=== PATIENT | female | born 1970 | race Caucasian/White ===

== ENCOUNTER 2020-04-14 13:16 | Outpatient (REF) | payer OTHER, SELFPAY | END 2020-04-14 13:17 | disposition home or self-care (01) | LOC: HO.LAB 13:16 | PROVIDERS: Visit Provider Internal Medicine | DX: Z20.828 Contact with and (suspected) exposure to other viral communicable diseases (principal) | CPT/HCPCS: C9803; U0003 ==

== ENCOUNTER 2020-05-11 17:17 | Emergency (ER) | payer OTHER, SELFPAY ==
[2020-05-11 18:49] VITALS: BP 125/80; PULSE 92; RESP 18; TEMP 36.9; O2SAT 97; BMI 37.5
--- NOTE | 2020-05-11 18:52 | XR_ITS ---
EXAMINATION: XR CHEST CLINICAL INFORMATION: Shortness of breath. COMPARISON: Chest radiograph dated 08/17/2015. TECHNIQUE: Frontal view of the chest was obtained. FINDINGS: The lungs are clear. The cardiomediastinal silhouette is normal in size. There is no pleural effusion or pneumothorax. No acute osseous abnormality. XR/XR chest 1V IMPRESSION: No acute cardiopulmonary findings.
--- NOTE | 2020-05-11 18:52 | ED_ITS ---
HPI - URI/Sore Throat General Chief Complaint: General Medical Stated Complaint: SOB Time Seen by Provider: 05/11/20 17:20 Source: patient Mode of arrival: ambulatory History of Present Illness HPI Narrative: 50-year-old female with a past medical history of anemia, asthma, COVID-19 positive on 04/14, presenting to the ED complaining of chest pressure/burning, intermittent SOB, mild dry cough, and bilateral back pain x2 days. Reports initially when diagnosed w/COVID-19 only had rhinorrhea. Also reports dysuria x today. Denies fever, chills, abd pain, N/V/D/C, hematuria, recent travel, LE edema, OCP use Related Data Previous Rx's Medication Instructions Recorded nitrofurantoin macrocrystal 100 mg PO Q12H 5 Days #10 cap 05/11/20 Allergies Allergy/AdvReac Type Severity Reaction Status Date / Time No Known Allergies Allergy Verified 05/11/20 18:48 [No Known Allergies*] Review of Systems Review of Systems: Constitutional: No Weight loss, No Fever, No Chills, No Night Sweats ENT/Mouth: No Nasal Congestion, No Sinus Pain, No Hoarseness, No sore throat, No Rhinorrhea Eyes: No Eye Pain, No Swelling, No Redness, No Foreign Body, No Discharge, No Vision Changes Cardiovascular: + Chest Pain, + SOB, No Dyspnea on Exertion, No Orthopnea, No Edema, No Palpitations Respiratory: + Cough, No Sputum, No Wheezing, No Smoke Exposure, No Dyspnea Gastrointestinal: No Nausea, No Vomiting, No Diarrhea, No Constipation, No Abdominal pain Genitourinary: No irregular bleeding, + Dysuria, No Urinary Frequency, No Hematuria Musculoskeletal: +back pain, No Myalgias, No Joint Swelling Skin: No Skin Lesions, No rash Yes all other systems are reviewed and are negative PMFSH Past Medical History Attestation statement: The following information was validated with the patient. Medical History (Updated 05/11/20 @ 23:08 by MARISSA Carranza) Anemia Asthma COVID-19 Encounter for general health examination Surgical History (Updated 03/26/20 @ 06:32 by JOSE Marquez) H/O bilateral breast reduction surgery History of section History of lumbar surgery Family History Family History (Updated 03/26/20 @ 06:33 by Josiane Hartley Bright) Father Diabetes High cholesterol Mother Chronic mental illness Maternal Grandmother Cancer Maternal Grandfather Heart disease Paternal Grandmother No problems noted. Paternal Grandfather No problems noted. Social History Social History Alcohol intake: never Smoking Status: Never smoker Use of substances other than those prescribed or required for medical reasons: No Advance Directives: No Advance Directives Information Provided: No Physical Exam Vital Signs: Vital Signs: Last Vital Signs Temp 98.0 F 05/11/20 22:00 Pulse 79 05/11/20 22:00 Resp 18 05/11/20 22:00 BP 143/81 H 05/11/20 22:00 Pulse Ox 97 05/11/20 22:00 Body Mass Index 37.5 Const: General: cooperative and healthy appearing Orientation/consciousness: patient oriented x3 Limitations: no limitations HENMT: Head: Yes normal to inspection Ears: hearing grossly normal bilate rally General nose exam: Normal external nose present Face and sinus: Yes normal facial exam Eyes: General: appearance normal, both eyes and all related structures EOM: EOMs intact bilaterally Neck: Neck: Yes normal visual inspection Resp: Effort & Inspection: normal respiratory effort Auscultation: clear to auscultation bilaterally, no crackles, no rales, no rhonchi and no wheezes Cardio: Rate: regular rate Heart sounds: S1 normal heart sound present and S2 normal heart sound present GI: Inspection: Yes normal to inspection Palpation (GI): Soft to palpation, nontender, no guarding and not rigid Back/Spine/Pelvis: Other: +mild MSK lower thoracic ttp. No midline spinous ttp Skin: Rashes: no rashes Wounds: no wounds Neuro: General: patient oriented x3 Gait exam (Neuro): Normal gait present Extrem: Other: no LE edema or calf ttp General: Yes normal to inspection Course Course Course Narrative: * 194--chest x-ray unremarkable * CRP mildly elevated, troponin 7.4 > will obtain 3hr repeat * UA infected > 1st dose Macrobid given in the ED * 2304-repeat troponin without 50% increase in [place], [place] unlikely Results discussed with patient including worrisome signs and symptoms and strict return precautions. She verbalized understanding feel safe for discharge home MDM - URI/Sore Throat MDM Narrative Medical decision making narrative: 50-year-old female with a past medical history of anemia, asthma, COVID-19 positive on 04/14, presenting to the ED complaining of chest pressure/burning, intermittent SOB, mild dry cough, and bilateral back pain x2 days On exam VSS, NAD, well appearing, no LE edema, lungs CTA. Likely post covid lung syndrome vs viral infection vs ?pna. Low concern for PE w/o tachycardia or hypoxia. Low concern for ACS Plan: EKG, labs, CXR, reassess Lab Data Result diagrams: 05/11/20 19:35 05/11/20 19:35 Labs: Lab Results 05/11/20 05/11/20 05/11/20 Range/Units 19:35 19:35 19:35 WBC 9.0 (4.8-10.8) X10*3/uL RBC 5.15 (4.20-5.50) X10*6/uL Hgb 11.5 L (12.0-16.0) g/dl Hct 37.5 (37-47) % MCV 72.8 L (80-98) fL MCH 22.3 L (27.0-33.0) pg MCHC 30.7 L (31.0-35.0) g/dl RDW 15.1 (11.0-16.0) % Plt Count 244 (160-400) X10*3/uL MPV 10.8 (9.4-12.3) fL Immature Gran % (Auto) 0.3 (0.0-0.4) % Neut % (Auto) 60.0 (45-73) % Lymph % (Auto) 27.9 (20-40) % [place] % (Auto) 6.8 (2-11) % Eos % (Auto) 4.8 H (0-4) % Baso % (Auto) 0.2 (0-2) % Lymph # (Auto) 2.5 (1.2-4.9) X10*3/uL [place] # (Auto) 0.6 (0.1-1.2) X10*3/uL Eos # (Auto) 0.4 (0.0-0.4) X10*3/uL Baso # (Auto) 0.0 (0.0-0.2) X10*3/uL Abs Immat Gran (auto) 0.03 (0.00-0.03) X10*3/uL Absolute Neuts (auto) 5.4 (2.0-8.3) X10*3/uL Absolute Nucleated RBC 0.000 (0.0-0.012) X10*3/uL Nucleated RBC % (auto) 0.0 (0.0-0.2) /100WBC Hold Blue Top SEE NOTE Sodium 143 (135-145) mmol/L Potassium 4.1 (3.3-5.1) mmol/l Chloride 106 (96-108) mmol/L Carbon Dioxide 27 (22-29) mmol/L Anion Gap 14 (12-20) BUN 11 (9-16) mg/dL Creatinine 1.18 (0.5-1.4) mg/dL Estim Creat Clear Calc 59.2 Estimated GFR 48 Random Glucose 117 H (60-115) mg/dL Calcium 9.3 (8.4-10.2) mg/dL Magnesium (1.6-2.6) mg/dL Ferritin (10-250) ng/mL Total Bilirubin (0.0-1.0) mg/dL Direct Bilirubin (0.0-0.5) mg/dL AST (5-31) U/L ALT (0-31) U/L Alkaline Phosphatase (39-117) U/L Lactate Dehydrogenase (122-220) U/L Troponin I High Sens (<3.5-17.0) ng/L C-Reactive Protein (< or = 0.50) mg/dL B-Natriuretic Peptide (<100) pg/mL Total Protein (6.5-8.0) g/dL Albumin (3.5-5.0) g/dL Lipase (8-78) U/L Procalcitonin ng/mL Urine Color Urine Appearance Urine pH (5.0-8.0) Ur Specific [place] (1.005-1.025) Urine Protein (NEG-TRACE) MG/DL Urine Glucose (UA) (NEG) MG/DL Urine Ketones (NEG) MG/DL Urine Blood (NEG) Urine Nitrite (NEG) Ur Leukocyte Esterase (NEG) Urine RBC (0) /HPF Urine WBC (0-4) /HPF Ur Squamous Epith Cells /LPF Urine Bacteria /LPF 01/03/21 01/03/21 01/03/21 Range/Units 19:35 19:35 19:35 WBC (4.8-10.8) X10*3/uL RBC (4.20-5.50) X10*6/uL Hgb (12.0-16.0) g/dl Hct (37-47) % MCV (80-98) fL MCH (27.0-33.0) pg MCHC (31.0-35.0) g/dl RDW (11.0-16.0) % Plt Count (160-400) X10*3/uL MPV (9.4-12.3) fL Immature Gran % (Auto) (0.0-0.4) % Neut % (Auto) (45-73) % Lymph % (Auto) (20-40) % [place] % (Auto) (2-11) % Eos % (Auto) (0-4) % Baso % (Auto) (0-2) % Lymph # (Auto) (1.2-4.9) X10*3/uL [place] # (Auto) (0.1-1.2) X10*3/uL Eos # (Auto) (0.0-0.4) X10*3/uL Baso # (Auto) (0.0-0.2) X10*3/uL Abs Immat Gran (auto) (0.00-0.03) X10*3/uL Absolute Neuts (auto) (2.0-8.3) X10*3/uL Absolute Nucleated RBC (0.0-0.012) X10*3/uL Nucleated RBC % (auto) (0.0-0.2) /100WBC Hold Blue Top Sodium (135-145) mmol/L Potassium (3.3-5.1) mmol/l Chloride (96-108) mmol/L Carbon Dioxide (22-29) mmol/L Anion Gap (12-20) BUN (9-16) mg/dL Creatinine (0.5-1.4) mg/dL Estim Creat Clear Calc Estimated GFR Random Glucose (60-115) mg/dL Calcium (8.4-10.2) mg/dL Magnesium 2.1 (1.6-2.6) mg/dL Ferritin 45 (10-250) ng/mL Total Bilirubin 0.4 (0.0-1.0) mg/dL Direct Bilirubin 0.2 (0.0-0.5) mg/dL AST 15 (5-31) U/L ALT 16 (0-31) U/L Alkaline Phosphatase 65 (39-117) U/L Lactate Dehydrogenase 210 (122-220) U/L Troponin I High Sens 7.4 (<3.5-17.0) ng/L C-Reactive Protein 0.98 H (< or = 0.50) mg/dL B-Natriuretic Peptide 17 (<100) pg/mL Total Protein 7.4 (6.5-8.0) g/dL Albumin 4.4 (3.5-5.0) g/dL Lipase 22 (8-78) U/L Procalcitonin 0.02 ng/mL Urine Color Urine Appearance Urine pH (5.0-8.0) Ur Specific [place] (1.005-1.025) Urine Protein (NEG-TRACE) MG/DL Urine Glucose (UA) (NEG) MG/DL Urine Ketones (NEG) MG/DL Urine Blood (NEG) Urine Nitrite (NEG) Ur Leukocyte Esterase (NEG) Urine RBC (0) /HPF Urine WBC (0-4) /HPF Ur Squamous Epith Cells /LPF Urine Bacteria /LPF 05/11/20 05/11/20 Range/Units 19:41 22:12 WBC (4.8-10.8) X10*3/uL RBC (4.20-5.50) X10*6/uL Hgb (12.0-16.0) g/dl Hct (37-47) % MCV (80-98) fL MCH (27.0-33.0) pg MCHC (31.0-35.0) g/dl RDW (11.0-16.0) % Plt Count (160-400) X10*3/uL MPV (9.4-12.3) fL Immature Gran % (Auto) (0.0-0.4) % Neut % (Auto) (45-73) % Lymph % (Auto) (20-40) % [place] % (Auto) (2-11) % Eos % (Auto) (0-4) % Baso % (Auto) (0-2) % Lymph # (Auto) (1.2-4.9) X10*3/uL [place] # (Auto) (0.1-1.2) X10*3/uL Eos # (Auto) (0.0-0.4) X10*3/uL Baso # (Auto) (0.0-0.2) X10*3/uL Abs Immat Gran (auto) (0.00-0.03) X10*3/uL Absolute Neuts (auto) (2.0-8.3) X10*3/uL Absolute Nucleated RBC (0.0-0.012) X10*3/uL Nucleated RBC % (auto) (0.0-0.2) /100WBC Hold Blue Top Sodium (135-145) mmol/L Potassium (3.3-5.1) mmol/l Chloride (96-108) mmol/L Carbon Dioxide (22-29) mmol/L Anion Gap (12-20) BUN (9-16) mg/dL Creatinine (0.5-1.4) mg/dL Estim Creat Clear Calc Estimated GFR Random Glucose (60-115) mg/dL Calcium (8.4-10.2) mg/dL Magnesium (1.6-2.6) mg/dL Ferritin (10-250) ng/mL Total Bilirubin (0.0-1.0) mg/dL Direct Bilirubin (0.0-0.5) mg/dL AST (5-31) U/L ALT (0-31) U/L Alkaline Phosphatase (39-117) U/L Lactate Dehydrogenase (122-220) U/L Troponin I High Sens 7.7 (<3.5-17.0) ng/L C-Reactive Protein (< or = 0.50) mg/dL B-Natriuretic Peptide (<100) pg/mL Total Protein (6.5-8.0) g/dL Albumin (3.5-5.0) g/dL Lipase (8-78) U/L Procalcitonin ng/mL Urine Color YELLOW Urine Appearance CLEAR Urine pH 7.0 (5.0-8.0) Ur Specific [place] 1.020 (1.005-1.025) Urine Protein NEG (NEG-TRACE) MG/DL Urine Glucose (UA) NEG (NEG) MG/DL Urine Ketones NEG (NEG) MG/DL Urine Blood NEG (NEG) Urine Nitrite NEG (NEG) Ur Leukocyte Esterase 2+ H (NEG) Urine RBC 0 (0) /HPF Urine WBC 10-14 H (0-4) /HPF Ur Squamous Epith Cells 2+ /LPF Urine Bacteria TRACE /LPF Discharge Plan Discharge Clinical Impression: Acute viral syndrome UTI (urinary tract infection) Qualifiers: Urinary tract infection type: site unspecified Hematuria presence: without hematuria Qualified Code(s): N39.0 - Urinary tract infection, site not specified Patient Disposition: Home, Self-Care Instructions: Urinary Tract Infection in Women (ED) Additional Instructions: Your blood work and chest x-ray were reassuring today in the ED You do have a urinary tract infection Macrobid is an antibiotic, take as prescribed It is important that he stay hydrated at home If you develop fever, constant or worsening chest pain, shortness of breath, abdominal pain, or unable to eat or drink return to the ED Prescriptions: New nitrofurantoin macrocrystal 100 mg capsule 100 mg PO Q12H 5 Days Qty: 10 RF: 0 Referrals: Physician,Unknown [Primary Care Provider] - 5 days
[2020-05-11 19:25] VITALS: BP 121/81; PULSE 85; RESP 16; TEMP 36.7; O2SAT 97
--- NOTE | 2020-05-11 19:30 | ECG_ITS ---
Test Reason : GENERAL MEDICAL Blood Pressure : / mmHG Vent. Rate : 085 BPM Atrial Rate : 085 BPM P-R Int : 124 ms QRS Dur : 070 ms QT Int : 354 ms P-R-T Axes : 038 036 021 degrees QTc Int : 421 ms Normal sinus rhythm Nonspecific T wave abnormality Abnormal ECG When compared with ECG of 10-AUG-2017 19:39, Nonspecific T wave abnormality now evident in Anterior leads Referred By: Mary Perera Electronically Signed By:Vic Sanchez
[2020-05-11 19:45] LABS: MANUAL DIFF FLAG NO
[2020-05-11 19:46] LABS: Basophils Percent Auto 0.2 % (0-2); Eosinophils Absolute Auto 0.4 X10*3/uL (0.0-0.4); Eosinophils Percent Auto 4.8 % (0-4); Hematocrit 37.5 % (37-47); Hemoglobin 11.5 g/dl (12.0-16.0); Imm Gran Abs Auto 0.03 X10*3/uL (0.00-0.03); Imm Gran Pct Auto 0.3 % (0.0-0.4); Lymphocytes Absolute Auto 2.5 X10*3/uL (1.2-4.9); Lymphocytes Percent Auto 27.9 % (20-40); Mean Corpuscular HGB Conc 30.7 g/dl (31.0-35.0); Mean Corpuscular Hemoglobin 22.3 pg (27.0-33.0); Mean Corpuscular Volume 72.8 fL (80-98); Mean Platelet Volume 10.8 fL (9.4-12.3); Monocytes Absolute Auto 0.6 X10*3/uL (0.1-1.2); Monocytes Percent Auto 6.8 % (2-11); Neutrophils Absolute Auto 5.4 X10*3/uL (2.0-8.3); Platelet Count 244 X10*3/uL (160-400); Red Blood Count 5.15 X10*6/uL (4.20-5.50); Red Cell Distribution Width 15.1 % (11.0-16.0)
[2020-05-11 20:10] LABS: Anion Gap 14 (12-20); Blood Urea Nitrogen 11 mg/dL (9-16); Calcium 9.3 mg/dL (8.4-10.2); Carbon Dioxide 27 mmol/L (22-29); Chloride 106 mmol/L (96-108); Creatinine Clr Calc Pharmacy 59.2; Estimated Glomerular Filt Rate 48; Glucose Random 117 mg/dL (60-115); Potassium 4.1 mmol/l (3.3-5.1); Sodium 143 mmol/L (135-145)
[2020-05-11 20:15] LABS: B Type Natriuretic Peptide 17 pg/mL (<100); Troponin-I High Sensitivity 7.4 ng/L (<3.5-17.0)
[2020-05-11 20:19] LABS: Alanine Aminotransferase 16 U/L (0-31); Albumin Level 4.4 g/dL (3.5-5.0); Alkaline Phosphatase 65 U/L (39-117); Aspartate Amino Transferase 15 U/L (5-31); Bilirubin Direct 0.2 mg/dL (0.0-0.5); Bilirubin Total 0.4 mg/dL (0.0-1.0); C Reactive Protein 0.98 mg/dL (< or = 0.50); Lactate Dehydrogenase 210 U/L (122-220); Lipase 22 U/L (8-78); Magnesium 2.1 mg/dL (1.6-2.6); Total Protein 7.4 g/dL (6.5-8.0)
[2020-05-11 20:26] LABS: Glucose Urine UA NEG (NEG); Leukocyte Esterase Urine 2+ (NEG); Nitrite Urine NEG (NEG); Urine Blood NEG (NEG); Urine Ketones NEG (NEG); Urine Protein NEG (NEG-TRACE)
[2020-05-11 20:28] LABS: Appearance Urine CLEAR; Color Urine YELLOW
[2020-05-11 20:29] LABS: Procalcitonin 0.02 ng/mL
[2020-05-11 20:39] LABS: Ferritin 45 ng/mL (10-250)
[2020-05-11 20:46] LABS: RBC Urine 0 /HPF (0); Squamous Epithelial Cell Urine 2+ /LPF
[2020-05-11 20:47] LABS: Bacteria Urine TRACE /LPF
[2020-05-11 22:00] VITALS: BP 143/81; PULSE 79; RESP 18; TEMP 36.7; O2SAT 97
[2020-05-11] MEDS: Nitrofurantoin Monohyd/M-Cryst 100 MG CAPSULE PO (22:46)
[2020-05-11 22:50] LABS: Troponin-I High Sensitivity 7.7 ng/L (<3.5-17.0)
== END 2020-05-11 23:20 | disposition home or self-care (01) ==
PROVIDERS: Physician Assistant; Emergency Provider Emergency Medicine
DX: B34.9 Viral infection, unspecified (principal); N39.0 Urinary tract infection, site not specified; Z20.828 Contact with and (suspected) exposure to other viral communicable diseases; Z86.16 Personal history of COVID-19
CPT/HCPCS: 36415; 71045; 80048; 80076; 81001; 82728; 83615; 83690; 83735; 83880; 84145; 84484; 85025; 86140; 87086; 93005; 99283; 99284

== ENCOUNTER 2020-06-19 07:13 | Outpatient (REF) | payer OTHER, SELFPAY ==
[2020-06-19 08:09] LABS: MANUAL DIFF FLAG NO
[2020-06-19 08:20] LABS: Basophils Percent Auto 0.5 % (0-2); Eosinophils Absolute Auto 0.4 X10*3/uL (0.0-0.4); Hematocrit 38.3 % (37-47); Hemoglobin 11.5 g/dl (12.0-16.0); Imm Gran Abs Auto 0.01 X10*3/uL (0.00-0.03); Imm Gran Pct Auto 0.2 % (0.0-0.4); Lymphocytes Absolute Auto 2.4 X10*3/uL (1.2-4.9); Lymphocytes Percent Auto 37.2 % (20-40); Mean Corpuscular Hemoglobin 22.2 pg (27.0-33.0); Mean Corpuscular Volume 74.1 fL (80-98); Mean Platelet Volume 10.2 fL (9.4-12.3); Monocytes Absolute Auto 0.5 X10*3/uL (0.1-1.2); Monocytes Percent Auto 7.7 % (2-11); Neutrophils Absolute Auto 3.1 X10*3/uL (2.0-8.3); Neutrophils Percent Auto 48.4 % (45-73); Platelet Count 278 X10*3/uL (160-400); Red Blood Count 5.17 X10*6/uL (4.20-5.50); Red Cell Distribution Width 15.9 % (11.0-16.0); White Blood Count 6.5 X10*3/uL (4.8-10.8)
[2020-06-19 08:26] LABS: Estimated Average Glucose 126 mg/dL
[2020-06-19 09:03] LABS: Anion Gap 13 (12-20); Blood Urea Nitrogen 13 mg/dL (9-16); Calcium 9.1 mg/dL (8.4-10.2); Carbon Dioxide 26 mmol/L (22-29); Chloride 107 mmol/L (96-108); Estimated Glomerular Filt Rate > 60; Glucose Fasting 104 mg/dL (60-99); Potassium 4.7 mmol/L (3.3-5.1); Sodium 141 mmol/L (135-145)
[2020-06-19 09:12] LABS: TSH reflex Free T4 3.85 uIU/mL (0.32-4.0)
== END 2020-06-19 07:14 | disposition home or self-care (01) ==
LOC: HO.LAB 07:13
PROVIDERS: PCP Physician Assistant; Visit Provider Nurse Practitioner Family
DX: Z00.00 Encounter for general adult medical examination without abnormal findings (principal)
CPT/HCPCS: 36415; 80048; 83036; 84443; 85025

== ENCOUNTER 2020-08-05 13:45 | Outpatient (REF) | payer OTHER, SELFPAY ==
--- NOTE | ~2020-08-05 | MM_ITS ---
EXAMINATION: MM SCREENING DIGITAL BREAST TOMOSYNTHESIS, BILATERAL CLINICAL INFORMATION: Screening. Asymptomatic. The lifetime risk of breast cancer based on the Tyrer-Cuzick Model is 5.1%. COMPARISON: Mammography: September 13, 2017 and studies dating back to February 07, 2012 TECHNIQUE: Digital breast tomosynthesis is performed in both the craniocaudal and mediolateral oblique views along with computer-aided detection (CAD). Synthesized 2D images are generated from the tomosynthesis. FINDINGS: There are scattered areas of fibroglandular density (ACR BI-RADS breast composition Category b). There are no significant masses, abnormal calcifications, or other abnormalities. MM/MM tomosynthesis screening BI IMPRESSION: There are no significant changes from prior study. ASSESSMENT: BI-RADS 1: Negative RECOMMENDATION: Routine annual mammography screening. This patient's information was entered into a reminder system with a target due date for their next mammogram.
== END 2020-08-05 13:46 | disposition home or self-care (01) ==
LOC: HO.MAMMO 13:45
PROVIDERS: Visit Provider Physician Assistant
DX: Z12.31 Encounter for screening mammogram for malignant neoplasm of breast (principal)
CPT/HCPCS: 77063; 77067

== ENCOUNTER 2020-08-22 19:04 | Emergency (ER) | payer OTHER, SELFPAY ==
--- NOTE | ~2020-08-22 | XR_ITS ---
EXAMINATION: XR LUMBOSACRAL SPINE CLINICAL INFORMATION: Back pain COMPARISON: CT abdomen pelvis July 29 TECHNIQUE: Three views of the lumbosacral spine. FINDINGS: There is straightening of the lumbar spine. Degenerative changes are present with disc space narrowing at L5-S1. Mild spondylitic changes are present at other levels with some endplate osteophytes. No fractures are seen. No bony destructive lesions are seen. A single surgical clip is noted in the right pelvis with clips in the gallbladder fossa. XR/XR lumbar spine 2-3V IMPRESSION: Degenerative changes predominantly at L5-S1. No acute pathology
[2020-08-22 19:08] VITALS: BP 152/90; PULSE 88; RESP 18; TEMP 37.2; O2SAT 100; BMI 36.6
[2020-08-22] MEDS: Ketorolac Tromethamine 60 MG/2 ML VIAL IM (20:10)
--- NOTE | 2020-08-22 20:59 | ED.BACK ---
HPI - Back Pain/Injury General Chief Complaint: Back Pain/Injury Stated Complaint: Lower back pain Time Seen by Provider: 08/22/20 19:50 Source: patient Mode of arrival: ambulatory Limitations: no limitations History of Present Illness HPI Narrative: 50 yo female with a past medical history of previous lumbar surgery 10 yrs ago (unsure of what surgery) here with low back pain x 3 days. Pain radiates to the right leg. NO numbness/tingling in leg or groin. No bowel or bladder incontinence. No fevers/chills. Related Data Previous Rx's Medication Instructions Recorded albuterol sulfate 90 mcg/actuation 1 inh INHALATION Q4-6H PRN 30 Days 07/01/20 breath activated powder #1 ea inhaler,sensor erythromycin 5 mg/gram (0.5 %) eye 1 appl OPHTHALMIC (EYE) DAILY PRN 07/01/20 ointment 7 Days #3.5 g ferrous sulfate 325 mg (65 mg 325 mg PO DAILY #30 tab 07/14/20 iron) tablet cyclobenzaprine 10 mg PO TID PRN #10 tab 08/22/20 lidocaine [Lidoderm] 1 patch TOPICAL DAILY #15 ea 08/22/20 naproxen 500 mg PO BID PRN #20 tab 08/22/20 prednisone 40 mg PO DAILY #10 tab 08/22/20 Allergies Allergy/AdvReac Type Severity Reaction Status Date / Time No Known Allergies Allergy Verified 07/01/20 08:11 [No Known Allergies*] Review of Systems Review of Systems: Yes all other systems are reviewed and are negative Constitutional: Constitutional: Reports no additional constitutional complaints, Denies body ache(s), Denies chills, Denies fever(s), Denies headache(s) and Denies weakness Eyes: Eyes: Reports no additional eye complaints and Denies change in vision ENT: Reports system reviewed and no additional complaints, except as documented, Denies dizziness, Denies headache(s), Denies nasal congestion, Denies nasal discharge and Denies neck pain Cardiovascular: Cardiovascular: Reports no additional cardiovascular complaints, Denies chest pain, Denies leg edema and Denies dyspnea Respiratory: Respiratory: Reports no additional respiratory complaints, Denies cough and Denies dyspnea Gastrointestinal: Gastrointestinal: Reports no additional gastrointestinal complaints, Denies abdominal pain, Denies diarrhea, Denies nausea and Denies vomiting Genitourinary: Genitourinary: Reports no additional female genitourinary complaints and Denies urinary incontinence Musculoskeletal: Musculoskeletal: Reports no additional musculoskeletal complaints, Reports back pain, Denies arthralgias, Denies joint swelling, Denies neck pain, Denies numbness and Denies tingling Integumentary/Breasts: Skin/Breast: Reports system reviewed and no additional complaints, except as docu and Denies rash Neurologic: Reports system reviewed and no additional complaints, except as documented, Denies Abnormal speech present, Denies dizziness, Denies headache(s), Denies numbness, Denies tingling and Denies weakness PMF Past Medical History Attestation statement: The following information was validated with the patient. Source: old records reviewed and nursing notes reviewed Medical History Anemia Asthma COVID-19 Encounter for general health examination Surgical History H/O bilateral breast reduction surgery History of section History of cholecystectomy History of lumbar surgery Family History Family History Father Diabetes High cholesterol Mother Chronic mental illness Maternal Grandmother Cancer Maternal Grandfather Heart disease Paternal Grandmother No problems noted. Paternal Grandfather No problems noted. 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[employer]) Physical Exam Vital Signs: Vital Signs: Last Vital Signs Temp 98.9 F 08/22/20 19:08 Pulse 88 08/22/20 19:08 Resp 18 08/22/20 19:08 BP 152/90 H 08/22/20 19:08 Pulse Ox 100 08/22/20 19:08 Body Mass Index 36.6 Const: General: cooperative, healthy appearing, comfortable and no acute distress Orientation/consciousness: patient oriented x3 Limitations: no limitations HENMT: Head: Yes normal to inspection Ears: hearing grossly normal bilaterally General nose exam: Normal external nose present Face and sinus: Yes normal facial exam Mouth: Normal oral and palatal mucosa present Throat: Yes posterior oropharynx normal Eyes: General: appearance normal, both eyes and all related structures Pupils: Equal, round and reactive pupils present Neck: Neck: Yes normal visual inspection Chest: Chest palpation & inspection: normal inspection of the chest Resp: Effort & Inspection: normal respiratory effort Auscultation: clear to auscultation bilaterally Cardio: Rate: regular rate Rhythm: regular rhythm Peripheral pulses: Peripheral pulses 2+ throughout GI: Inspection: Yes normal to inspection Palpation (GI): Soft to palpation and nontender Auscultation: normal bowel sounds Back/Spine/Pelvis: Other: midline tenderness over the lumbar spine. no step offs or deformities Pain with right straight leg raise Thoracic/Lumbar Spine: thoracic and lumbar spine normal to inspection Skin: General skin exam: no rashes or lesions noted Neuro: General: patient oriented x3, no focal motor deficits and normal sensation to monofilament Cranial nerves: Yes CN's II-XII intact bilaterally and Yes Equal, round and reactive pupils present Cognition (Neuro): normal cognition Speech: No Abnormal speech present Gait exam (Neuro): Normal gait present Motor exam (neuro): 5/5 motor strength present throughout Sensory Exam: Normal double simultaneous stimulation for sensation Deep tendon reflexes (DTR's): Right patellar reflex intensity grade: 2+ and Left patellar reflex intensity grade: 2+ Extrem: General: Yes normal to inspection Course Course Course Narrative: 50 yo female here with low back pain with radiation to right leg x 3 days. 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 NO numbness/tingling/incontinence. Neuro intact. No red flag symptoms or neuro deficits. X-ray done which shows degenerative changes. Likely herniated disc. Patient will be referred to [facility]. No need for emergent MRI tonight. Pain imprvoed with toradol. Reviewed worrisome signs.symptoms with patient and when to return to ED. Comfortable with discharge home. MDM - Back Pain/Injury Medical Records Attestation: I reviewed the patient's medical records. Lab Data Attestation: I reviewed the patient's lab results. Imaging Data lumbar x-ray: Attestation: I personally reviewed and interpreted this imaging study as follows: Radiologist's impression: [facility], [place] [address]JFan ReportSigned Patient: Joann JohnR#: [id number]: 1970Acct:[id number]/Sex: 50 / FADM Date: 08/22/20Loc: [facility].EDAttending Dr: Ordering Physician: MIRTHA LOW NP Date of Service: 08/22/20 Procedure(s): XR lumbar spine 2-3V Accession Number(s): [id number] cc: MIRTHA LOW NP~ EXAMINATION: XR LUMBOSACRAL SPINE CLINICAL INFORMATION: Back pain COMPARISON: CT abdomen pelvis July 29 TECHNIQUE: Three views of the lumbosacral spine. FINDINGS: There is straightening of the lumbar spine. Degenerative changes are present with disc space narrowing at L5-S1. Mild spondylitic changes are present at other levels with some endplate osteophytes. No fractures are seen. No bony destructive lesions are seen. A single surgical clip is noted in the right pelvis with clips in the gallbladder fossa. XR/XR lumbar spine 2-3V IMPRESSION: Degenerative changes predominantly at L5-S1. No acute pathology Discharge Plan Discharge Clinical Impression: Herniated lumbar intervertebral disc Patient Disposition: Home, Self-Care Instructions: Lumbar Radiculopathy (ED), Lower Back Exercises (ED) Additional Instructions: Heat or ice gentle stretching Follow-up with the back doctor listed here no heavy lifting or bending Prescriptions: New naproxen 500 mg tablet 500 mg PO BID PRN (Reason: pain) Qty: 20 RF: 0 prednisone 20 mg tablet 40 mg PO DAILY Qty: 10 RF: 0 cyclobenzaprine 10 mg tablet 10 mg PO TID PRN (Reason: muscle spasm) Qty: 10 RF: 0 lidocaine [Lidoderm] 5 % adhesive patch,medicated 1 patch topical DAILY Qty: 15 RF: 0 No Action ferrous sulfate 325 mg (65 mg iron) tablet 325 mg PO DAILY Qty: 30 RF: 0 erythromycin 5 mg/gram (0.5 %) ointment 1 appl ophthalmic (eye) DAILY PRN (Reason: eye irritation) 7 Days Qty: 3.5 RF: 0 albuterol sulfate 90 mcg/actuation aero powdr breath act w/sensor 1 inh inhalation Q4-6H PRN (Reason: shortness of breath or wheezing) 30 Days Qty: 1 RF: 0 Referrals: Arian Bryan MD [Physician] - 2 days Interventions: ED Discharge Assessment Last Done: 08/22/20 20:52 Discharge Date/Time: 08/22/20 20:55
== END 2020-08-22 20:55 | disposition home or self-care (01) ==
PROVIDERS: Emergency Provider Internal Medicine; PCP Physician Assistant
DX: M51.26 Other intervertebral disc displacement, lumbar region (principal); M54.41 Lumbago with sciatica, right side; J45.909 Unspecified asthma, uncomplicated; Z86.16 Personal history of COVID-19
CPT/HCPCS: 72100; 96372; 99284; J1885

== ENCOUNTER 2020-12-24 06:52 | Outpatient (REF) | payer OTHER, SELFPAY ==
[2020-12-24 08:42] LABS: Hemoglobin 11.8 g/dl (12.0-16.0); Mean Corpuscular HGB Conc 30.3 g/dl (31.0-35.0); Mean Corpuscular Hemoglobin 22.3 pg (27.0-33.0); Mean Corpuscular Volume 73.7 fL (80-98); Mean Platelet Volume 11.2 fL (9.4-12.3); Platelet Count 280 X10*3/uL (160-400); Red Blood Count 5.29 X10*6/uL (4.20-5.50); Red Cell Distribution Width 14.8 % (11.0-16.0); White Blood Count 7.1 X10*3/uL (4.8-10.8)
[2020-12-24 08:53] LABS: Alanine Aminotransferase 18 U/L (0-31); Albumin Level 4.3 g/dL (3.5-5.0); Alkaline Phosphatase 62 U/L (39-117); Anion Gap 12 (12-20); Aspartate Amino Transferase 16 U/L (5-31); Bilirubin Total 0.2 mg/dL (0.0-1.0); Blood Urea Nitrogen 12 mg/dL (9-16); Calcium 9.7 mg/dL (8.4-10.2); Carbon Dioxide 27 mmol/L (22-29); Chloride 106 mmol/L (96-108); Cholesterol 195 mg/dL; Estimated Glomerular Filt Rate > 60; Glucose Fasting 105 mg/dL (60-99); HDL Cholesterol 43 mg/dL; Iron 47 mcg/dL (30-160); LDL Cholesterol Calculated 128 mg/dl; Percent Iron Saturation 14 % (15-50); Potassium 4.5 mmol/L (3.3-5.1); Sodium 140 mmol/L (135-145); Total Iron Binding Capacity 326 mcg/dL (228-428); Total Protein 6.9 g/dL (6.5-8.0); Triglycerides 122 mg/dL; Unsaturated Iron Binding 279 ug/dL
[2020-12-24 09:16] LABS: TSH reflex Free T4 2.58 uIU/mL (0.32-4.0)
[2020-12-24 10:02] LABS: Estimated Average Glucose 126 mg/dL
== END 2020-12-24 06:53 | disposition home or self-care (01) ==
LOC: HO.LAB 06:52
PROVIDERS: PCP Physician Assistant; Visit Provider Physician Assistant
DX: R73.09 Other abnormal glucose (principal); E66.09 Other obesity due to excess calories; Z68.37 Body mass index [BMI] 37.0-37.9, adult; D50.9 Iron deficiency anemia, unspecified; I10 Essential (primary) hypertension
CPT/HCPCS: 36415; 80053; 80061; 83036; 83540; 84443; 85027

== ENCOUNTER 2021-01-04 00:41 | Emergency (ER) | payer OTHER, SELFPAY ==
--- NOTE | ~2021-01-04 | XR_ITS ---
EXAMINATION: XR WRIST, RIGHT CLINICAL INFORMATION: Rule out fracture COMPARISON: None TECHNIQUE: PA, lateral, and oblique views of the right wrist. FINDINGS: Osseous alignment is anatomic. No acute fracture is seen. No significant focal soft tissue abnormality identified. XR/XR wrist RT 2V IMPRESSION: No acute findings.
--- NOTE | ~2021-01-04 | XR_ITS ---
EXAMINATION: XR ELBOW, RIGHT CLINICAL INFORMATION: Rule out fracture COMPARISON: None TECHNIQUE: AP, lateral, and oblique views of the right elbow. FINDINGS: Osseous alignment is anatomic. No acute fracture is seen. No appreciable joint effusion. XR/XR elbow RT 2V IMPRESSION: No acute findings.
--- NOTE | ~2021-01-04 | XR_ITS ---
EXAMINATION: XR SHOULDER, RIGHT CLINICAL INFORMATION: Rule out fracture COMPARISON: None TECHNIQUE: Three views of the right shoulder. FINDINGS: Glenohumeral alignment is anatomic. There is mild degenerative change along the glenoid. No acute fracture is seen. The acromioclavicular joint is intact with mild degenerative change. XR/XR shoulder RT min 2V IMPRESSION: No acute findings.
[2021-01-04 00:43] VITALS: BP 127/74; PULSE 93; RESP 16; TEMP 36.6; O2SAT 99; BMI 34.7
--- NOTE | 2021-01-04 01:48 | ED_ITS ---
HPI - Extremity Problem General Chief complaint: Extremity Injury, Upper Stated complaint: fall/ arm pain Time Seen by Provider: 01/04/21 01:22 Source: patient Mode of arrival: ambulatory History of Present Illness HPI Narrative: 50-year-old female who states that she slipped on a wet floor causing her to fall slightly backwards in catching her weight on her right upper extremity. She denies any numbness or tingling but is having discomfort on movement of the right upper extremity at the shoulder/elbow/wrist. Related Data Previous Rx's Medication Instructions Recorded albuterol sulfate 90 mcg/actuation 1 inh INHALATION Q4-6H PRN 30 Days 07/01/20 breath activated powder #1 ea inhaler,sensor erythromycin 5 mg/gram (0.5 %) eye 1 appl OPHTHALMIC (EYE) DAILY PRN 07/01/20 ointment 7 Days #3.5 g ferrous sulfate 325 mg (65 mg 325 mg PO DAILY #30 tab 07/14/20 iron) tablet cyclobenzaprine 10 mg tablet 10 mg PO TID PRN #10 tab 08/22/20 lidocaine 5 % topical patch 1 patch TOPICAL DAILY #15 ea 08/22/20 (Lidoderm) naproxen 500 mg tablet 500 mg PO BID PRN #20 tab 08/22/20 prednisone 20 mg tablet 40 mg PO DAILY #10 tab 08/22/20 Allergies Allergy/AdvReac Type Severity Reaction Status Date / Time No Known Allergies Allergy Verified 01/04/21 00:43 [No Known Allergies*] Review of Systems Review of Systems: Pertinent positives and negatives as stated in HPI 10 point review of systems is otherwise negative. [facility] Past Medical History Source: nursing notes reviewed Medical History Anemia Asthma COVID-19 Encounter for general health examination Surgical History H/O bilateral breast reduction surgery History of section History of cholecystectomy History of lumbar surgery Family History Family History Father Diabetes High cholesterol Mother Chronic mental illness Maternal Grandmother Cancer Maternal Grandfather Heart disease Paternal Grandmother No problems noted. Paternal Grandfather No problems noted. 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 GENERAL: Well developed, well nourished, in no acute distress. HEAD: Normocephalic/atraumatic EYES: PERRLA, EOMI LUNGS: Normal breath sounds. No adventitious sounds or accessory muscle use. SpO2<99> CARDIOVASCULAR: Regular rate and rhythm without noted murmurs ABDOMEN: Soft, non-tender, non-distended with bowel sounds. RIGHT UPPER EXTREMITY: No deformities, palpable radial/ulnar pulses, capillary refill less than 3 seconds, sensation is intact, pain on palpation over elbow SKIN: Inspection of the skin reveals no rashes NEUROLOGIC: Alert and oriented x 4. Strength and sensation to light touch were grossly intact x 4. Course Course Course Narrative: 50-year-old female with history and clinical presentation consistent with mechanical fall and on review of all imaging there are no acute fractures or dislocations. Patient was informed of all results and endorses at that time that she does not wish to have anything for pain. She was otherwise discharged home in stable condition. Discharge Plan Discharge Clinical Impression: Fall, Musculoskeletal arm pain Patient Disposition: Home, Self-Care Instructions: Fall Prevention (ED), Musculoskeletal Pain (ED) Additional Instructions: 1. Recommend [id number] Tylenol/ibuprofen as needed for pain control. 2. Apply ice for 5-10 minutes on unexposed skin, 3 to 4 times a day. 3. Follow-up with your primary care provider in the next 2-3 days for re- evaluation and further outpatient management. Return to the ER for acute worsening of symptoms. Prescriptions: No Action ferrous sulfate 325 mg (65 mg iron) tablet 325 mg PO DAILY Qty: 30 RF: 0 naproxen 500 mg tablet 500 mg PO BID PRN (Reason: pain) Qty: 20 RF: 0 prednisone 20 mg tablet 40 mg PO DAILY Qty: 10 RF: 0 cyclobenzaprine 10 mg tablet 10 mg PO TID PRN (Reason: muscle spasm) Qty: 10 RF: 0 lidocaine [Lidoderm] 5 % adhesive patch,medicated 1 patch topical DAILY Qty: 15 RF: 0 erythromycin 5 mg/gram (0.5 %) ointment 1 appl ophthalmic (eye) DAILY PRN (Reason: eye irritation) 7 Days Qty: 3.5 RF: 0 albuterol sulfate 90 mcg/actuation aero powdr breath act w/sensor 1 inh inhalation Q4-6H PRN (Reason: shortness of breath or wheezing) 30 Days Qty: 1 RF: 0 Referrals: Mario Alvarado PA-C [Primary Care Provider] - 2 days
== END 2021-01-04 01:57 | disposition home or self-care (01) ==
PROVIDERS: Emergency Provider Student in an Organized Health Care Education/Training Program; PCP Physician Assistant
DX: S49.91XA Unspecified injury of right shoulder and upper arm, initial encounter (principal); M79.601 Pain in right arm; W01.0XXA Fall on same level from slipping, tripping and stumbling without subsequent striking against object, initial encounter; Y93.9 Activity, unspecified; Y92.9 Unspecified place or not applicable; Y99.9 Unspecified external cause status; Z79.899 Other long term (current) drug therapy
CPT/HCPCS: 73030; 73070; 73100; 99283

== ENCOUNTER 2021-11-12 08:30 | Outpatient (REF) | payer BC, SELFPAY ==
[2021-11-12 09:10] LABS: Estimated Average Glucose 128 mg/dL; Hemoglobin A1c % 6.1 %
[2021-11-12 09:43] LABS: Alanine Aminotransferase 16 U/L (0-31); Albumin Level 4.3 g/dL (3.5-5.0); Alkaline Phosphatase 67 U/L (39-117); Anion Gap 10 (12-20); Aspartate Amino Transferase 16 U/L (5-31); Bilirubin Total 0.8 mg/dL (0.0-1.0); Blood Urea Nitrogen 14 mg/dL (9-16); Calcium 9.3 mg/dL (8.4-10.2); Carbon Dioxide 26 mmol/L (22-29); Chloride 107 mmol/L (96-108); Estimated Glomerular Filt Rate > 60; Glucose Fasting 90 mg/dL (60-99); Potassium 4.4 mmol/L (3.3-5.1); Sodium 139 mmol/L (135-145); Total Protein 7.1 g/dL (6.5-8.0)
== END 2021-11-12 08:31 | disposition home or self-care (01) ==
LOC: HO.LAB 08:30
PROVIDERS: PCP Physician Assistant; Visit Provider Physician Assistant
DX: Z13.1 Encounter for screening for diabetes mellitus (principal); R73.01 Impaired fasting glucose; R73.09 Other abnormal glucose; J45.20 Mild intermittent asthma, uncomplicated
CPT/HCPCS: 36415; 80053; 83036

== ENCOUNTER 2022-07-05 11:14 | Emergency (ER) | payer BC, SELFPAY ==
--- NOTE | ~2022-07-05 | XR_ITS ---
EXAMINATION: XR ELBOW, LEFT XR SHOULDER, LEFT CLINICAL INFORMATION: Status post fall. Pain. COMPARISON: None. TECHNIQUE: 3 views left elbow and 3 views left shoulder. FINDINGS: Left Elbow: There is a transverse lucency along the lateral epicondyle. No abnormal joint effusion seen. The rest of the visualized bones and the joint space are maintained normal. Left Shoulder: There is mild reduction in left glenohumeral joint space with inferior glenoid spur. No loose bodies. No soft tissue calcification seen. The mild hypertrophic spurring seen along the left AC joint. XR/XR shoulder LT min 2V IMPRESSION: 1. Transverse lucency along the lateral epicondyle likely nondisplaced fracture of distal humerus No abnormal joint effusion seen. 2. Mild degenerative changes left glenohumeral and AC joint with inferior glenoid spur. No acute fracture or dislocation seen. 3. There is a inferior AC joint spur.
--- NOTE | ~2022-07-05 | XR_ITS ---
EXAMINATION: XR FINGER, LEFT CLINICAL INFORMATION: Fall, trauma, pain COMPARISON: None TECHNIQUE: AP view left hand and 2 views of the left thumb are obtained for a total of 3 views. FINDINGS: There is no visible fracture dislocation. No arthropathy. Normal bony mineralization. No periostitis. XR/XR finger LT min 2V IMPRESSION: No fracture or dislocation.
--- NOTE | ~2022-07-05 | XR_ITS ---
EXAMINATION: XR ELBOW, LEFT XR SHOULDER, LEFT CLINICAL INFORMATION: Status post fall. Pain. COMPARISON: None. TECHNIQUE: 3 views left elbow and 3 views left shoulder. FINDINGS: Left Elbow: There is a transverse lucency along the lateral epicondyle. No abnormal joint effusion seen. The rest of the visualized bones and the joint space are maintained normal. Left Shoulder: There is mild reduction in left glenohumeral joint space with inferior glenoid spur. No loose bodies. No soft tissue calcification seen. The mild hypertrophic spurring seen along the left AC joint. XR/XR elbow LT min 3V IMPRESSION: 1. Transverse lucency along the lateral epicondyle likely nondisplaced fracture of distal humerus No abnormal joint effusion seen. 2. Mild degenerative changes left glenohumeral and AC joint with inferior glenoid spur. No acute fracture or dislocation seen. 3. There is a inferior AC joint spur.
[2022-07-05 11:24] VITALS: BP 127/85; PULSE 88; RESP 16; TEMP 36.6; O2SAT 100; BMI 38.4
--- NOTE | 2022-07-05 11:28 | ED.FALL ---
HPI - Fall General Chief Complaint: Extremity Problem <MARISSA Lay - Last Filed: 07/05/22 11:29> Stated Complaint: fall r arm inj <MARISSA Lay - Last Filed: 07/05/22 11:29> Time Seen by Provider: 07/05/22 11:35 <MARISSA Lay - Last Filed: 07/05/22 11:29> Source: patient <MARISSA Oliver Last Filed: 07/05/22 14:32> Mode of arrival: ambulatory <MARISSA Oliver - Last Filed: 07/05/22 14:32> Limitations: no limitations <MARISSA Oliver Last Filed: 07/05/22 14:32> History of Present Illness HPI Narrative: 52-year-old female presenting to the ER with complaints of left shoulder/left elbow and left thumb pain that started prior to arrival after she was at the car wash and she slipped and fell on black ice. She reports she landed directly on her left shoulder/arm and since then she has been having pain worse with extending her arm completely straight. She reports the pain radiates from her shoulder all the way down to her left thumb. She denies being on any blood thinners. She denies head injury loss of consciousness or prolonged down time or any symptoms prior to the fall, neck pain, back pain, any other extremity pain or injury or any other symptoms complaints or concerns at this time. <MARISSA Oliver - Last Filed: 07/05/22 14:32> MD complaint: fall <MARISSA Oliver Last Filed: 07/05/22 14:32> Onset (ago): minute(s) (Prior to arrival) <MARISSA Oliver Last Filed: 07/05/22 14:32> Fall from: standing <MARISSA Oliver Last Filed: 07/05/22 14:32> Fall witnessed: no <MARISSA Oliver Last Filed: 07/05/22 14:32> Place fall occurred: street <MARISSA Oliver Last Filed: 07/05/22 14:32> Loss of consciousness: none <MARISSA Oliver Last Filed: 07/05/22 14:32> Prolonged down time: no <MARISSA Oliver Last Filed: 07/05/22 14:32> Symptoms prior to fall: none <MARISSA Oliver Last Filed: 07/05/22 14:32> Context: tripped/slipped <MARISSA Oliver Last Filed: 07/05/22 14:32> Location of injury - extremities: left: shoulder, elbow and hand (thumb) <MARISSA Oliver Last Filed: 07/05/22 14:32> Severity: moderate <MARISSA Oliver Last Filed: 07/05/22 14:32> Quality: aching <MARISSA Oliver Last Filed: 07/05/22 14:32> Associated symptoms (after fall): denies <MARISSA Oliver Last Filed: 07/05/22 14:32> Related Data Home Medications: Previous Rx's Medication Instructions Recorded albuterol sulfate 90 mcg/actuation 1 inh inhalation QID 30 days #8.5 11/12/21 aerosol inhaler grams ibuprofen 800 mg tablet 800 mg PO Q8H PRN pain #14 tabs 07/05/22 oxycodone 5 mg tablet 5 mg PO Q6H PRN pain #14 tabs 07/05/22 <MARISSA Lay - Last Filed: 07/05/22 11:29> Allergies/Adverse Reactions: Allergies Allergy/AdvReac Type Severity Reaction Status Date / Time No Known Allergies Allergy Verified 11/12/21 07:52 [No Known Allergies*] <MARISSA Lay Last Filed: 07/05/22 11:29> Review of Systems Review of Systems: Constitutional : No Weight loss, No Fever, No Chills, No Night Sweats, No Fatigue, No Malaise ENT/Mouth : No Hearing loss, No Ear Pain, No Nasal Congestion, No Sinus Pain, No Hoarseness, No sore throat, No Rhinorrhea, No Swallowing Difficulty Eyes: No Eye Pain, No Swelling, No Redness, No Foreign Body, No Discharge, No Vision Changes Cardiovascular : No Chest Pain, No SOB, No Dyspnea on Exertion, No Orthopnea, No Edema, No Palpitations Respiratory : No Cough, No Sputum, No Wheezing, No Smoke Exposure, No Dyspnea Gastrointestinal : No Nausea, No Vomiting, No Diarrhea, No Constipation, No abdominal Pain, No Hematochezia, No Melena Genitourinary : no irregular bleeding, No Dysuria, No Urinary Frequency, No Hematuria, No Urinary Incontinence, No Urgency, No Flank Pain, No Urinary Flow Changes, No Hesitancy Musculoskeletal : + left shoulder/elbow/thumb joint pain, No Myalgias, No Joint Swelling Skin : No Skin Lesions, No rash Neuro : No Weakness, No Numbness, No Paresthesias, No Loss of Consciousness, No Dizziness, No Headache Psych : No Anxiety/Panic, No Depression, No SI/HI/AH/VH, No Social Issues, Heme/Lymph: No Bruising, No Bleeding,No Lymphadenopathy Endocrine : No Polyuria, No Polydipsia, No Temperature Intolerance <MARISSA Oliver - Last Filed: 07/05/22 14:32> Yes all other systems are reviewed and are negative <MARISSA Oliver - Last Filed: 07/05/22 14:32> PMF Past Medical History Attestation statement: The following information was validated with the patient. <MARISSA Oliver - Last Filed: 07/05/22 14:32> Source: old records reviewed and nursing notes reviewed <MARISSA Oliver - Last Filed: 07/05/22 14:32> Medical History: Medical History Anemia Asthma COVID-19 Encounter for general health examination <MARISSA Lay - Last Filed: 07/05/22 11:29> Surgical History: Surgical History H/O bilateral breast reduction surgery History of section History of cholecystectomy History of lumbar surgery <MARISSA Lay - Last Filed: 07/05/22 11:29> Family History Family History: Family History Father Diabetes High cholesterol Mother Chronic mental illness Mental health disorder Maternal Grandmother Cancer Maternal Grandfather Heart disease Paternal Grandmother No problems noted. Paternal Grandfather No problems noted. 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[employer]) Current occupational exposures/hazards: No Cognitive needs: No Hearing needs: No Vision needs: No <MARISSA Lay - Last Filed: 07/05/22 11:29> Physical Exam Vital Signs: Vital Signs: Last Vital Signs Temp 98 F 07/05/22 11:24 Pulse 88 07/05/22 11:24 Resp 16 07/05/22 11:24 BP 127/85 07/05/22 11:24 Pulse Ox 100 07/05/22 11:24 O2 Del Method 07/05/22 11:24 BMI result Body Mass Index 38.4 <MARISSA Lay - Last Filed: 07/05/22 11:29> Vital Signs: Last Vital Signs Temp 98 F 07/05/22 11:24 Pulse 88 07/05/22 11:24 Resp 16 07/05/22 11:24 BP 127/85 07/05/22 11:24 Pulse Ox 100 07/05/22 11:24 O2 Del Method 07/05/22 11:24 BMI result Body Mass Index 38.4 vital signs have been reviewed as normal and appeared to be correct. Blood pressure normal. Heart rate normal. Respiration rate normal. Temperature normal. Oxygen saturation normal. <MAIRSSA Oliver - Last Filed: 07/05/22 14:32> Appearance: Alert. Oriented X3. No acute distress. Head: Normal external exam. Normocephalic. Atraumatic. No Silverio signs noted. No raccoon eyes noted Eyes: PERRLA. EOMI. Conjunctiva and sclera normal. Eyelids normal. ENT: EAC normal. TM's Normal. No septal hematoma noted. No hemotympanum noted. Pharynx normal. Uvula midline. Moist mucous membranes. No lesions/ulcerations or masses noted on the tongue. Normal voice. No trismus noted. No drooling noted. No muffled voice noted. Neck: Normal inspection. Neck supple. FROM. No adenopathy. Thyroid Normal. No tracheal deviation noted. No crepitus is noted. No meningeal signs. No neck mass noted. No signs of trauma noted. CVS: Normal heart rate and rhythm. Heart sound normal. Pulses normal throughout. No murmurs/rales/gallops. Respiratory: No respiratory distress. Painless inspiration. Breath sounds normal. No wheezes/rales/rhonchi noted. Chest nontender. No crepitus is noted. No accessory muscle usage noted or decreased air movement noted. No signs of trauma. Abdomen: Soft and nontender. Nondistended. No guarding. No rigidity. Bowel sounds normal in all 4 quadrants. No distention noted. No organomegaly noted. No visible injury noted. No rebound tenderness. Negative Rovsing sign. Negative obturator's sign. Negative psoas sign. Negative Mcnair sign. Back: No CVA tenderness. Full range of motion noted. Nontender. No signs of trauma. Patient neuro intact bilaterally and distally on all 4 extremities. Patient's reflexes intact bilaterally and distally on all 4 extremities. No rashes/lesion/induration/fluctuance or signs of infection noted. Skin: Skin warm and dry. Normal skin color. Normal skin turgor. No rashes/lesions/lacerations noted. Extremities: Patient moderate tenderness palpation to the left AC joint and lateral aspect of the epicondyle. No obvious ligamentous or tendon injury noted. She has full range of motion of the left elbow/shoulder/hand and wrist joint. She also has tenderness palpation to the MCP joint of the left thumb. She has full range of motion of the left thumb in all finger/hand and wrist joint. No obvious ligamentous or tendon injury noted to the finger/hand and wrist joint. No tenderness on the anatomical snuffbox. Otherwise all other extremities exhibit normal range of motion nontender. Neuro: Oriented X 3. No motor deficit. No sensory deficit. Reflexes normal. Normal steady gait. No focal neuro deficits noted. CN's II-XII intact bilaterally? Vascular: + radial pulses/+ 2 distal pedal pulses/+2 dorsalis pedis b/l. Normal cap refill. No cyanosis noted to upper extremity nails and lower extremity toes nails. <MARISSA Oliver - Last Filed: 07/05/22 14:32> Course Course Course Narrative: RME - 52 y/o female presents to the ER for evaluation of LUE pain s/p fall on black ice this morning. She fell onto her left side and now reports pain in the left upper shoulder radiating down the arm. Has decent ROM, doubt acute fractures but will get XRs for further evaluation. <MARISSA Lay - Last Filed: 07/05/22 11:29> Reevaluation(s) Reevaluation #1: 52-year-old female presenting to the ER with complaints of left shoulder/left elbow and left thumb pain that started prior to arrival after she was at the car wash and she slipped and fell on black ice. She reports she landed directly on her left shoulder/arm and since then she has been having pain worse with extending her arm completely straight. She reports the pain radiates from her shoulder all the way down to her left thumb. On exam there is no obvious ligamentous or tendon injury noted or obvious deformities to the left shoulder/elbow/hand and wrist joint. No upper extremity edema. No weakness is noted. She has full range of motion of all joints. Although reports pain with range of motion of the elbow shoulder and thumb. X-ray obtained of left shoulder negative for any acute processes. I discussed this with the patient. X-ray of left shoulder revealed transverse lucency along the lateral epicondyle likely nondisplaced fracture of distal humerus. No joint effusion seen. Therefore at this time will place in a posterior long-arm splint with a sling and treat symptomatically and instructed follow-up with PCP/orthopedic and to return if any new or worsening symptoms. Patient understands agrees with this plan. <MARISSA Oliver - Last Filed: 07/05/22 14:32> Time: 14:26 <MARISSA Oliver - Last Filed: 07/05/22 14:32> Procedures Orthopedic Splinting/Casting Injury #1: Side: left <MARISSA Oliver - Last Filed: 07/05/22 14:32> Upper Extremity Injury Location: shoulder, upper arm and elbow <MARISSA Oliver - Last Filed: 07/05/22 14:32> Upper Extremity Immobilizer: sling/shoulder immobilizer and posterior splint <MARISSA Oliver - Last Filed: 02/27/23 14:32> Medical Decision Making Independent Interpretation I performed an independent interpretation of an: Plain X-Ray (I reviewed the x-ray of the left shoulder/finger and elbow and discussed this with the patient) <MARISSA Oliver Last Filed: 07/05/22 14:32> Radiology Impression Discussion of test interpretation with radiology: I have reviewed the radiologist's reading. (I reviewed the radiologist reading with patient and agree) <MARISSA Oliver Last Filed: 07/05/22 14:32> Radiologist Impression: EXAMINATION: XR ELBOW, LEFT XR SHOULDER, LEFT CLINICAL INFORMATION: Status post fall. Pain.? COMPARISON: None.? TECHNIQUE: 3 views left elbow and 3 views left shoulder.? FINDINGS: Left Elbow: There is a transverse lucency along the lateral epicondyle. No abnormal joint effusion seen. The rest of the visualized bones and the joint space are maintained normal. Left Shoulder: There is mild reduction in left glenohumeral joint space with inferior glenoid spur. No loose bodies. No soft tissue calcification seen. The mild hypertrophic spurring seen along the left AC joint. XR/XR elbow LT min 3V IMPRESSION: 1.? Transverse lucency along the lateral epicondyle likely nondisplaced fracture of distal humerus No abnormal joint effusion seen. 2.? Mild degenerative changes left glenohumeral and AC joint with inferior glenoid spur. No acute fracture or dislocation seen. 3.? There is a inferior AC joint spur. EXAMINATION: XR FINGER, LEFT CLINICAL INFORMATION: Fall, trauma, pain? COMPARISON: None? TECHNIQUE: AP view left hand and 2 views of the left thumb are obtained for a total of 3 views. FINDINGS: There is no visible fracture dislocation. No arthropathy. Normal bony mineralization. No periostitis.? XR/XR finger LT min 2V IMPRESSION: No fracture or dislocation. <MARISSA Oliver Last Filed: 07/05/22 14:32> Prescription Management I considered prescription management with: Pain Medication <MARISSA Oliver Last Filed: 07/05/22 14:32> Discharge Plan Discharge Clinical Impression: Epicondylitis, lateral, left, Sprain of left shoulder, Fall <MARISSA Lay Last Filed: 07/05/22 11:29> Patient Disposition: Home, Self-Care <MARISSA Lay - Last Filed: 07/05/22 11:29> Instructions: Elbow Fracture (ED) <MARISSA Lay - Last Filed: 07/05/22 11:29> Prescriptions: New ibuprofen 800 mg tablet 800 mg PO Q8H PRN (Reason: pain) Qty: 14 0RF oxycodone 5 mg tablet 5 mg PO Q6H PRN (Reason: pain) Qty: 14 0RF Rx Instructions: Partial Fill upon patient request. No Action albuterol sulfate 90 mcg/actuation HFA aerosol inhaler 1 inh inhalation QID 30 Days Qty: 8.5 1RF <MARISSA Lay - Last Filed: 07/05/22 11:29> Referrals: [facility] [place] [facility] [Provider Group] (Call to make a follow-up appointment within next few weeks) Mario Alvarado PA-C [Primary Care Provider] - <MARISSA Lay - Last Filed: 07/05/22 11:29> Print Language: Pakistani <MARISSA Lay - Last Filed: 07/05/22 11:29>
== END 2022-07-05 14:55 | disposition home or self-care (01) ==
PROVIDERS: Emergency Provider Emergency Medicine; PCP Physician Assistant
DX: M77.12 Lateral epicondylitis, left elbow (principal); S43.402A Unspecified sprain of left shoulder joint, initial encounter; W00.0XXA Fall on same level due to ice and snow, initial encounter; Y93.89 Activity, other specified; Y92.481 Parking lot as the place of occurrence of the external cause; Y99.8 Other external cause status
CPT/HCPCS: 29105; 73030; 73080; 73140; 99283; 99284

== ENCOUNTER 2022-07-19 15:58 | Outpatient (REF) | payer BC, SELFPAY ==
--- NOTE | ~2022-07-19 | XR_ITS ---
EXAMINATION: XR ELBOW, LEFT CLINICAL INFORMATION: Pain. COMPARISON: Radiographs dated 07/05/2022. TECHNIQUE: AP, lateral, and oblique views of the left elbow. FINDINGS: The bones and soft tissues are normal. No fracture or joint effusion. Alignment is anatomic. Joint spaces are maintained. XR/XR elbow LT min 3V IMPRESSION: Normal left elbow. No fracture is presently appreciated.
== END 2022-07-19 15:59 | disposition home or self-care (01) ==
LOC: HO.HOSX 15:58
PROVIDERS: Visit Provider Physician Assistant
DX: S42.402A Unspecified fracture of lower end of left humerus, initial encounter for closed fracture (principal)
CPT/HCPCS: 73080

== ENCOUNTER 2022-08-02 05:54 | Outpatient (REF) | payer BC, SELFPAY ==
--- NOTE | ~2022-08-02 | XR_ITS ---
EXAMINATION: XR WRIST, LEFT CLINICAL INFORMATION: Pain COMPARISON: None available. TECHNIQUE: PA, lateral, and oblique views of the left wrist. FINDINGS: The bones and soft tissues are normal. No fracture. Alignment is anatomic with normal joint spaces. No erosions or abnormal soft tissue calcifications. XR/XR wrist LT min 3V IMPRESSION: Normal left wrist.
--- NOTE | ~2022-08-02 | XR_ITS ---
EXAMINATION: XR ELBOW, LEFT CLINICAL INFORMATION: Pain. Question fracture. COMPARISON: Previous x-rays June and July 2022 TECHNIQUE: AP, lateral, and oblique views of the left elbow. FINDINGS: The bones and soft tissues are normal. No fracture or joint effusion. Alignment is anatomic. Joint spaces are maintained. XR/XR elbow LT min 3V IMPRESSION: Normal left elbow.
== END 2022-08-02 05:55 | disposition home or self-care (01) ==
LOC: HO.HOSX 05:54
PROVIDERS: Visit Provider Physician Assistant
DX: S42.402D Unspecified fracture of lower end of left humerus, subsequent encounter for fracture with routine healing (principal); M25.532 Pain in left wrist
CPT/HCPCS: 73080; 73110

== ENCOUNTER 2022-08-14 08:32 | Outpatient (REF) | payer BC, SELFPAY ==
--- NOTE | ~2022-08-14 | MM_ITS ---
EXAMINATION: MM SCREENING DIGITAL BREAST TOMOSYNTHESIS, BILATERAL CLINICAL INFORMATION: Screening. Asymptomatic. The lifetime risk of breast cancer based on the Tyrer-Cuzick Model is 6%. COMPARISON: Mammography: 08/05/2020, 09/13/2017, 05/18/2016 TECHNIQUE: Digital breast tomosynthesis is performed in both the craniocaudal and mediolateral oblique views along with computer-aided detection (CAD). Synthesized 2D images are generated from the tomosynthesis. Additional left cleavage view is provided. FINDINGS: There are scattered areas of fibroglandular density (ACR BI-RADS breast composition Category b). There are no significant masses, abnormal calcifications, or other abnormalities. Parenchymal pattern is similar to prior studies. There is no developing density or architectural abnormality. The axilla and skin contours are unremarkable. No significant changes. MM/MM tomosynthesis screening BI IMPRESSION: No mammographic evidence of malignancy. ASSESSMENT: BI-RADS 1: Negative RECOMMENDATION: Routine annual mammography screening. This patient's information was entered into a reminder system with a target due date for their next mammogram.
== END 2022-08-14 08:33 | disposition home or self-care (01) ==
LOC: HO.MAMMO 08:32
PROVIDERS: PCP Physician Assistant; Visit Provider Physician Assistant
DX: Z12.31 Encounter for screening mammogram for malignant neoplasm of breast (principal)
CPT/HCPCS: 77063; 77067

== ENCOUNTER → 2022-09-17 09:31 | Outpatient (BNVA) | payer BC, SELFPAY | PROVIDERS: PCP Physician Assistant; Visit Provider Physician Assistant ==

== ENCOUNTER 2022-10-07 08:30 | Outpatient (RCR) | payer BC, SELFPAY ==
--- NOTE | 2022-08-20 09:49 | MHC.OT.EP ---
[address] [phone] Occupational Therapy Plan of Care Patient Name: Paola Padgett Date of Evaluation: 08/20/22 Diagnosis: Pain Location: Left ulnar wrist and lateral elbow Moderate pain at rest, increases w/ use Pain Score: 7 Aggravating Factors: General use and movement, sleeping Alleviating Factors: Motrin Assessment: 52 yo right hand dominant female presents about 6 weeks after slipping on ice and landing on her left arm and elbow. She was seen in the ED and x-ray showed left lateral epicondyle fx. She was placed in sling and posterior splint and referred to [facility]. She has now been cleared to remove sling, but continues to wear left wrist orthosis for work tasks and comfort, no heavy lifting at this time. On assessment, she continues to have high pain in left ulnar wrist, left lateral elbow and some pain in left shoulder. She is very guarded w/ movements and has low submaximal operations intern strength. I anticipate she will do well w/ course of hand therapy to progress range and strength w/ goal of returning to normal daily activities. 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 Thank you once again for your referral.
--- NOTE | 2022-10-22 14:50 | MHC.OT.DC ---
[address] [phone] F: [phone] Occupational Therapy Discharge Note Patient Name: Paola Padgett Provider: Neymar Marques Diagnosis: Left Lateral Elbow Fx Date of Surgery: Date of Evaluation: 08/20/22 Date of Discharge: 10/22/22 Treatments to Date: 10 Cancellations to Date: 1 No Shows to Date: 2 Discharge Status: Recommend MD Follow-up Visit Non-compliance Discharge Summary: Pt reports elbow pain improved. Con't biceps/shoulder pain with end range elbow flexion. Pt denies left hand paresthesia Ther ex limited due to con't complaint of wrist pain and mild edema noted at ulnar wrist. Electronically Signed By: Melinda Carrillo OT CHT CLT Reviewed/agree with student documentation: Therapist: Please Sign and return to therapist, thank you for your referral.
== END 2022-10-22 14:51 | disposition home or self-care (01) ==
LOC: HO.OT 08:30
PROVIDERS: PCP Physician Assistant; Visit Provider Physician Assistant
DX: S42.402A Unspecified fracture of lower end of left humerus, initial encounter for closed fracture (principal)
CPT/HCPCS: 97033; 97035; 97110; 97165

== ENCOUNTER 2022-11-04 13:46 | Outpatient (REF) | payer BC, SELFPAY ==
--- NOTE | 2022-11-04 13:51 | EMG_ITS ---
Please see scanned EMG / Nerve Conduction Report. MTDD
== END 2022-11-04 13:47 | disposition home or self-care (01) ==
LOC: HO.NEURO 13:46
PROVIDERS: PCP Physician Assistant; Visit Provider Physician Assistant
DX: R20.0 Anesthesia of skin (principal); R20.2 Paresthesia of skin
CPT/HCPCS: 95885; 95910

== ENCOUNTER 2022-11-17 14:42 | Outpatient (AMB) | payer BC, SELFPAY ==
--- NOTE | 2022-11-17 14:48 | A.OFFVIS_ITS ---
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 Patient reports having pain in the dorsal aspect of wrist. Occasional numbness & tingling in her 2nd, 3rd and 4th digit. She has complaints of right shoulder pain. Allergies No Known Allergies [No Known Allergies*] Allergy (Verified 11/17/22 14:50) HPI OV-Mild left CTS- discuss surgery HPI Details Paola is a 52 year old right hand dominant woman who presents for a NCS review of her left hand numbness. She has been seeing MARISSA Blackmon for left lateral epicondylitis. She complains of pain in the dorsal aspect of her forearm up to her elbow, and intermittent numbness in the median nerve distribution & ring finger. She says this is intermittent, but daily. She denies any worsening nighttime symptoms She has been attending OT and wearing a forearm brace, which she says has helped her pain somewhat. 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 Her job is clean and relatively light. [facility] Medical History Anemia Asthma COVID-19 Encounter for general health examination Humerus fracture Surgical History H/O bilateral breast reduction surgery History of section History of cholecystectomy History of lumbar surgery Family History Father Diabetes High cholesterol Mother Chronic mental illness Mental health disorder Maternal Grandmother Cancer Maternal Grandfather Heart disease Paternal Grandmother No problems noted. Paternal Grandfather No problems noted. 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[employer]) Current occupational exposures/hazards: No Cognitive needs: No Hearing needs: No Vision needs: No Review of Systems Const All systems reviewed & are unremarkable except as noted in HPI and below Physical Exam Vital Signs: BMI result Body Mass Index 38.4 Const General: cooperative, healthy appearing and no acute distress Orientation/consciousness: patient oriented x3 HEENT Head: Yes normocephalic and Yes atraumatic Eyes EOM: EOMs intact bilaterally Resp Effort & Inspection: normal respiratory effort and able to speak in complete sentences Cardio Jugular venous distension: no JVD Skin General skin exam: turgor normal Rashes: no rashes Neuro General: patient oriented x3 Extrem Other: Evaluation of Left Upper Extremity: The patient is alert, oriented, and in no acute distress Neuro: Median, Ulnar, Radial nerves motor and sensory intact and sensation is normal to the tips of all digits today in clinic No thenar or intrinsic wasting Good APB muscle belly firing and good finger cross Vascular: Cap refill brisk ROM: She can make a fist and extend all her digits Skin: No lacerations or abrasions. General: No Ecchymosis. No Erythema or evidence of infection. Radiographs: 3 views of the left wrist from 08/02/22 were reviewed by me today in clinic They show no fractures or dislocations. Nerve Conduction Study: Impression: Mild left carpal tunnel syndrome Normal EMG of the C5-T1 innervated muscles Dr. Chowdhury 11/04/22 Psych Appearance: grossly normal Affect: normal affect Attitude: cooperative Assessment & Plan Assessment & Plan (1) Carpal tunnel syndrome on left: Code(s): G56.02 - Carpal tunnel syndrome, left upper limb (2) Epicondylitis, lateral, left: Code(s): M77.12 - Lateral epicondylitis, left elbow Plan Assessment & Plan: 1. Left carpal tunnel syndrome, mild Symptoms intermittent, but daily I educated her about this condition I discussed operative and non-operative treatment options The patient would like to proceed with surgery The risks and benefits of operative treatment were discussed with the patient and the patient wishes to proceed with surgery. These risks include, but are not limited to risk of damage to blood vessels, nerves, tendons, infection, recurrence, incomplete relief of preoperative symptoms, persistent pain, possible need for further surgery and the risks associated with regional blocks and anesthesia. The plan is to take the patient to the operating room sometime in the next few weeks for the following procedures: 1. Left carpal tunnel release, under local All of the preoperative paperwork including the consent was filled out today. All the patient's questions were answered. The patient understands that they will be contacted by our call center support representative soon to schedule this procedure. She would like this done on a in the latter half of December. She denies Diabetes, blood thinners, asthma, heart, lung, kidney issues 2. Left lateral epicondylitis I educated her about this condition I discussed operative and non-operative treatment options I discussed activity modification, she should limit or avoid heavy or repetitive movements, or activities which cause her pain She will continue to work with OT hand therapy Scribed for Shahana Enriquez MD by Robin German, product manager medical device, on 11/17/22 at 3:05 PM, EST. Coding Level of Care Code Est Pt Level 4 (28863) Diagnoses Carpal tunnel syndrome on left G56.02 Epicondylitis, lateral, left M77.12
[2022-11-17 14:51] VITALS: BMI 38.4
== END 2022-11-17 15:03 | disposition home or self-care (01) ==
LOC: HO.HOS 14:42
PROVIDERS: PCP Physician Assistant; Visit Provider Orthopaedic Surgery
DX: G56.02 Carpal tunnel syndrome, left upper limb (principal); M77.12 Lateral epicondylitis, left elbow
CPT/HCPCS: 99214

== ENCOUNTER → 2022-11-17 14:42 | Outpatient (BNVA) | payer BC, SELFPAY | PROVIDERS: PCP Physician Assistant; Visit Provider Orthopaedic Surgery ==

== ENCOUNTER 2022-12-03 18:43 | Emergency (ER) | payer BC, SELFPAY ==
--- NOTE | ~2022-12-03 | XR_ITS ---
EXAMINATION: XR CHEST CLINICAL INFORMATION: Cough COMPARISON: Chest x-ray on 05/11/2020 TECHNIQUE: Frontal view of the chest was obtained. FINDINGS: No significant abnormality is noted involving the heart, lungs, mediastinum, bony thorax or soft tissues. XR/XR chest 1V IMPRESSION: Unremarkable examination.
[2022-12-03 18:59] VITALS: BP 127/75; PULSE 91; RESP 18; TEMP 36.6; O2SAT 98; BMI 38.3
[2022-12-03 19:21] LABS: IDNOW Serial# 08D9AD1C; Strep A Nucleic Acid Negative (Negative)
--- NOTE | 2022-12-03 19:21 | ED_ITS ---
HPI - General Adult General Chief complaint: Upper Respiratory Symptoms Stated complaint: coughing, sob Time Seen by Provider: 12/03/22 19:21 Source: patient Mode of arrival: ambulatory Limitations: no limitations History of Present Illness HPI narrative: Patient is a 52 year old assigned female at with a history of asthma presenting to the emergency department today with a persistent cough. Patient states that over the last 24 hours she has had a cough. Patient denies any dizziness, lightheadedness, abdominal pain, nausea, vomiting, fever, chills, blurry vision, double vision, loss of vision, chest pain, difficulty breathing, shortness of breath, back pain, night sweats, pain with urination, increased urinary frequency, increased urinary urgency, blood in her urine or stool, syncope or a near syncopal episode, recent trauma or falls, bowel incontinence, bladder incontinence, bowel retention, bladder retention, or any other complaints at this time. Onset (ago): day(s) (1) Severity: mild Severity scale (1-10): 2 Relieving factors: none Exacerbating factors: none Associated symptoms: cough Treatments prior to arrival: none Related Data Previous Rx's Medication Instructions Recorded albuterol sulfate 90 mcg/actuation 1 inh inhalation QID 30 days #8.5 11/12/21 aerosol inhaler grams benzonatate 100 mg capsule 100 mg PO BID PRN cough 7 days #14 12/03/22 caps prednisone 20 mg tablet 20 mg PO DAILY 7 days #7 tabs 12/03/22 Allergies Allergy/AdvReac Type Severity Reaction Status Date / Time No Known Allergies Allergy Verified 12/03/22 19:02 [No Known Allergies*] Review of Systems Constitutional: Constitutional: Reports no additional constitutional complaints, Denies chills, Denies fever(s) and Denies night sweats Eyes: Eyes: Reports no additional eye complaints, Denies blurry vision, Denies change in vision, Denies diplopia, Denies eye discharge, Denies loss of vision and Denies eye pain ENT: Denies dizziness Cardiovascular: Cardiovascular: Reports no additional cardiovascular complaints, Denies chest pain, Denies lightheadedness, Denies Loss of Consciousness and Denies dyspnea Respiratory: Respiratory: Reports no additional respiratory complaints, Reports cough and Denies dyspnea Gastrointestinal: Gastrointestinal: Reports no additional gastrointestinal complaints, Denies abdominal pain, Denies melena, Denies hematochezia, Denies change in bowel habits and Denies change in stool character Genitourinary: Genitourinary: Denies hematuria, Denies urinary frequency, Denies dysuria, Denies urinary incontinence, Denies urinary hesitancy and Denies urinary urgency Musculoskeletal: Musculoskeletal: Reports no additional musculoskeletal complaints, Denies numbness and Denies tingling Neurologic: Denies dizziness, Denies loss of vision, Denies numbness and Denies tingling Psychiatric: Psychiatric: Reports no additional psychiatric complaints Endocrine: Endocrine: Reports no additional endocrine complaints Hematologic/Lymphatic: Hematologic/Lymphatic: Reports no additional hematologic/lymphatic complaints Allergic/Immunologic: Allergic/Immunologic: Reports no additional allergic/immunologic complaints [facility] Past Medical History Attestation statement: The following information was validated with the patient. Source: old records reviewed and nursing notes reviewed Medical History Abscess of thumb, right Anemia Annual physical exam Asthma Colon cancer screening Conjunctivitis COVID-19 Elevated fasting blood sugar Encounter for general health examination Humerus fracture Impaired glucose metabolism Left elbow fracture Obese Screening for diabetes mellitus (DM) Surgical History H/O bilateral breast reduction surgery History of section History of cholecystectomy History of lumbar surgery Family History Family History Father Diabetes High cholesterol Mother Chronic mental illness Mental health disorder Maternal Grandmother Cancer Maternal Grandfather Heart disease Paternal Grandmother No problems noted. Paternal Grandfather No problems noted. 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[employer]) Current occupational exposures/hazards: No Cognitive needs: No Hearing needs: No Vision needs: No Physical Exam ED Vital Signs: Vital Signs - 24 hr 12/03/22 18:59 12/03/22 20:14 Temperature 97.9 F 97.9 F Pulse Rate 91 88 Respiratory Rate 18 18 Blood Pressure 127/75 131/75 Pulse Oximetry 98 97 Oxygen Delivery Method Room Air Room Air BMI result Body Mass Index 38.3 Const General: cooperative, no acute distress, alert and awake Nutritional Appearance: well nourished Orientation/consciousness: patient oriented x3 Limitations: no limitations HENMT Head: Yes normal to inspection and Yes atraumatic Ears: hearing grossly normal bilaterally and external ears normal General nose exam: Normal external nose present, no nasal discharge noted and no epistaxis Face and sinus: Yes normal facial exam, No abrasion and No laceration Mouth: Normal oral and palatal mucosa present, no drooling and no muffled voice Eyes General: appearance normal, both eyes and all related structures Periorbital: periorbital findings normal Eyelids: Yes eyelids normal Conjunctivae: conjunctivae normal Pupils: Equal, round and reactive pupils present EOM: EOMs intact bilaterally Neck Neck: Yes normal visual inspection, Yes full ROM and Yes no lymphadenopathy Chest Chest palpation & inspection: normal inspection of the chest Resp Effort & Inspection: normal respiratory effort, able to speak in complete sentences and Actively coughing Quality: dry Auscultation: clear to auscultation bilaterally Cardio Rate: regular rate Rhythm: regular rhythm GI Inspection: Yes normal to inspection Neuro General: patient oriented x3 and moves all extremities Cranial nerves: Yes Equal, round and reactive pupils present Cognition (Neuro): normal cognition Motor exam (neuro): 5/5 motor strength present throughout Sensory Exam: Normal double simultaneous stimulation for sensation Coordination: [id number] test normal Extrem General: Yes normal to inspection, Yes full ROM and Yes capillary refill normal Psych Appearance: grossly normal Mental Status: mental status grossly normal Affect: normal affect Attitude: cooperative Thought process: Normal thought process present Thought content: Normal thought content present Insight: Good insight present (Psych) Medical Decision Making Medical Decision Making MDM Narrative: Patient is a 52 year old assigned female at with a history of asthma presenting to the emergency department today with a cough. Patient's physical exam was unremarkable. Patient's chest x-ray showed no acute process. Patient's COVID-19, influenza, and strep tests were all negative. I explained my physical exam findings as well as all test results to the patient. I answered all questions asked by the patient. I stressed the importance of the patient taking her medication as prescribed. I stressed the importance of the patient following up with her primary care provider. I stressed the importance of the patient returning to the emergency department immediately if her symptoms were to worsen or if she were to develop any dizziness, shortness of breath, difficulty breathing, chest pain, blurry vision, loss of vision, nausea, vomiting, abdominal pain, fever, chills, back pain, or any other complaints. Patient verbalized agreement and understanding with this treatment plan and discharge. Differential Diagnosis Differential Diagnoses: The differential diagnosis associated with the presentation includes Cough Asthma Wheezing URI COVID-19 Influenza Strep pharyngitis Lab Data MDM Lab Attestation statement: I reviewed the patient's lab results. My interpretation of these studies and their corresponding values is that they are grossly normal. Labs: Lab Results 12/03/22 12/03/22 12/03/22 Range/Units 19:06 19:06 19:06 COVID-19 (LANE) Negative (Negative) COVID-19 Clin Com See Note Influenza Type A ([facility]) Negative (Negative) Influenza Type B ([facility]) Negative (Negative) Influenza A & B Note See Note S. pyogenes GrpA [facility] Negative (Negative) Independent Interpretation I performed an independent interpretation of an: Plain X-Ray Interpretation: My interpretation is in agreement with the radiologist's impression of this imaging study. EXAMINATION: XR CHEST CLINICAL INFORMATION: Cough COMPARISON: Chest x-ray on 05/11/2020 TECHNIQUE: Frontal view of the chest was obtained. FINDINGS: No significant abnormality is noted involving the heart, lungs, mediastinum, bony thorax or soft tissues. XR/XR chest 1V IMPRESSION: Unremarkable examination. Dictated By: Pau Smith MD Signed By: Electronically signed by Pau Smith MD 07/28/23 1945 Radiology Impression Discussion of test interpretation with radiology: I have reviewed the radiologist's reading. Discharge Plan Discharge Clinical Impression: Cough, URI (upper respiratory infection) Patient Disposition: Home, Self-Care Instructions: Upper Respiratory Infection (DC), Acute Cough (ED) Additional Instructions: Follow up with your primary care provider. Return to the emergency department immediately if your symptoms worsen or if you develop any dizziness, shortness of breath, difficulty breathing, chest pain, blurry vision, loss of vision, nausea, vomiting, abdominal pain, fever, chills, back pain, or any other complaints. Prescriptions: New prednisone 20 mg tablet 20 mg PO DAILY 7 Days Qty: 7 0RF benzonatate 100 mg capsule 100 mg PO BID PRN (Reason: cough) 7 Days Qty: 14 0RF No Action albuterol sulfate 90 mcg/actuation HFA aerosol inhaler 1 inh inhalation QID 30 Days Qty: 8.5 1RF Referrals: Mario Alvarado PA-C [Primary Care Provider] - Interventions: ED Discharge Assessment Last Done: 12/03/22 20:14 Discharge Date/Time: 12/03/22 20:15 Print Language: Icelandic
[2022-12-03 19:29] LABS: COVID-19 Test Negative (Negative); IDNOW Serial# 9DB6401D
[2022-12-03 19:30] LABS: IDNOW Serial# BCCEAD1C; Influenza A Negative (Negative); Influenza B2 Negative (Negative)
[2022-12-03 20:14] VITALS: BP 131/75; PULSE 88; RESP 18; TEMP 36.6; O2SAT 97
== END 2022-12-03 20:15 | disposition home or self-care (01) ==
PROVIDERS: Emergency Provider Emergency Medicine; PCP Physician Assistant
DX: J06.9 Acute upper respiratory infection, unspecified (principal); R05.9 Cough, unspecified; R06.02 Shortness of breath; Z20.822 Contact with and (suspected) exposure to COVID-19; Z20.828 Contact with and (suspected) exposure to other viral communicable diseases; Z79.899 Other long term (current) drug therapy
CPT/HCPCS: 71045; 87502; 87635; 87651; 99282; 99283

== ENCOUNTER 2023-02-07 07:24 | Day surgery (SDC) | payer BC, SELFPAY ==
[2023-02-07 08:09] VITALS: BMI 38.4
[2023-02-07 08:17] VITALS: BP 138/69; PULSE 92; RESP 16; TEMP 36.2; O2SAT 98
[2023-02-07 11:22] VITALS: PULSE 87; RESP 16
--- NOTE | 2023-02-07 11:29 | MHC.SHP ---
Pre-Procedural Eval Section A Date of Service: 02/07/23 The patient is an INPATIENT: No Changes since office visit: No Cold of Flu in the past 2 weeks, No New Medical Problems, No Changes in Medication and No Patient answered all questions The History & Physical has been completed within 30 days and I have reviewed it.: Yes Section B Chief Complaint: Carpal tunnel syndrome, left upper limb Allergies: Allergies Allergy/AdvReac Type Severity Reaction Status Date / Time No Known Allergies Allergy Verified 12/03/22 19:02 [No Known Allergies*] Plan I have reviewed the history and physical and performed a pertinent physical examination on my patient. No changes have occurred unless specified. Time Spent With Patient Time: Total time managing care of this patient today ____ minutes.
--- NOTE | 2023-02-07 11:29 | W.PM.OPN ---
Operative Note Operative Note Date of Service: 02/07/23 Narrative: Preop diagnosis: 1. left Carpal tunnel syndrome Postop diagnosis: same Procedure: 1. left Carpal tunnel release Surgeon: Shahana Enriquez MD Anesthesia: local block using 1% lidocaine with epinephrine Findings: Thickened transverse carpal ligament. EBL: Less than 5 mL Specimens: None Complications: None Disposition: Brought to recovery room in stable condition Plan: Follow-up for 10-14 days for wound check and suture removal Indications: The patient is 52 years old, with left carpal tunnel syndrome that has been unresponsive to nonoperative management. The risks and benefits of operative treatment including but not limited to risk of damage to blood vessels, nerves, tendons, infection, persistent pain, persistent symptoms, or possible need for additional surgery were discussed with the patient and the patient wishes to proceed with surgery. Procedure: Once consent was obtained a local block was performed using a combination of 1% lidocaine with epinephrine. The patient was then brought back to the operating suite and placed on the operative table in supine position. The left upper extremity was prepped and draped in a standard surgical fashion. Once assured that we had a good block, a 2.0 cm longitudinal incision was made centered over the carpal tunnel. The incision was made through the skin to the subcutaneous tissues using a #15 blade. Dissection was made down to the level of the transverse carpal ligament with care being taken to protect the palmar cutaneous nerve. Once the transverse carpal ligament was clearly visualized, a longitudinal incision was made in the transverse carpal ligament 1st using a #15 blade, then using tenotomy scissors under direct visualization. Care was taken to look for and protect the motor branch of the median nerve when seen in this area. Once satisfied with our carpal tunnel release the wound was copiously irrigated with normal saline and hemostasis was obtained with a brief period of local pressure. The skin edges were reapproximated with some 5.0 nylon suture material and a sterile dressing was applied. The patient appears to have tolerated the procedure well and with no complications. All digits were well vascularized at the conclusion of the case.
== END 2023-02-07 11:52 | disposition home or self-care (01) ==
PROVIDERS: PCP Physician Assistant; Visit Provider Orthopaedic Surgery
PROC: (CPT 64721; principal; 2023-02-07 09:40)
DX: G56.02 Carpal tunnel syndrome, left upper limb (principal); M77.12 Lateral epicondylitis, left elbow; R20.0 Anesthesia of skin; R20.2 Paresthesia of skin; M25.532 Pain in left wrist; J45.909 Unspecified asthma, uncomplicated; D64.9 Anemia, unspecified; Z98.890 Other specified postprocedural states
CPT/HCPCS: 64721; J0171; J2795

== ENCOUNTER → 2023-02-07 07:24 | Outpatient (BNV) | payer BC, SELFPAY | PROVIDERS: PCP Physician Assistant; Visit Provider Orthopaedic Surgery | DX: G56.02 Carpal tunnel syndrome, left upper limb (principal) | CPT/HCPCS: 64721 ==

== ENCOUNTER 2023-02-23 13:02 | Outpatient (AMB) | payer BC, SELFPAY ==
--- NOTE | 2023-02-23 13:06 | MHC.OFFVIS ---
Intake Vital Signs 02/23/23 13:07 Height 5 ft 2 in Weight 210 lb BMI 38.4 Intake Visit Reasons: PO LT CTR 02/07/23AR Intake Note: Paola 'presents today for her P/O visit for her left CTR from 02/07/23. States numbness has improved. Sutures removed and steri strips applied. Allergies No Known Allergies [No Known Allergies*] Allergy (Verified 02/23/23 13:13) HPI PO LT CTR 02/07/23AR HPI Details Paola is a 52 year old right hand dominant woman who presents S/P left carpal tunnel release, DOS: 02/07/23. She says her sensation is improved and she is happy with the results of her surgery. [facility] Medical History Abscess of thumb, right Anemia Annual physical exam Asthma Colon cancer screening Conjunctivitis COVID-19 Elevated fasting blood sugar Encounter for general health examination Humerus fracture Impaired glucose metabolism Left elbow fracture Obese Screening for diabetes mellitus (DM) Surgical History H/O bilateral breast reduction surgery History of section History of cholecystectomy History of lumbar surgery Family History Father Diabetes High cholesterol Mother Chronic mental illness Mental health disorder Maternal Grandmother Cancer Maternal Grandfather Heart disease Paternal Grandmother No problems noted. Paternal Grandfather No problems noted. 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 Sutures removed and Steri-Strips applied She can make a fist and extend all her digits No locking or catching Sensation is improved and now normal Cap refill is brisk Psych Appearance: grossly normal Affect: normal affect Attitude: cooperative Assessment & Plan Assessment & Plan (1) Carpal tunnel syndrome on left: Code(s): G56.02 - Carpal tunnel syndrome, left upper limb (2) Epicondylitis, lateral, left: Code(s): M77.12 - Lateral epicondylitis, left elbow Plan Assessment & Plan: 1. Left carpal tunnel syndrome, S/P release DOS: 02/07/23 Pre-operative symptoms intermittent, but daily Now with normal sensation The patient appears to be doing well post-operatively I educated her about the post-operative course I explained the signs and symptoms of infection, if the patient develops any new or worsening erythema, drainage, pain, or warmth they should contact the clinic or attend the ED. 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 She was given a note to return to work on 02/28/23 on light duty for 2 weeks before returning to full duty She can follow up prn 2. Left lateral epicondylitis This was addressed last visit She will continue to work with OT hand therapy Scribed for Shahana Enriquez MD by Robin German, neuropsychology medical consultant, on 02/23/23 at 1:35 PM, EST. Coding Level of Care Code Global (02181) Diagnoses Carpal tunnel syndrome on left G56.02 Epicondylitis, lateral, left M77.12
[2023-02-23 13:07] VITALS: BMI 38.4
== END 2023-02-23 13:36 | disposition home or self-care (01) ==
PROVIDERS: PCP Physician Assistant; Visit Provider Orthopaedic Surgery
DX: G56.02 Carpal tunnel syndrome, left upper limb (principal); M77.12 Lateral epicondylitis, left elbow
CPT/HCPCS: 99024

== ENCOUNTER → 2023-02-23 13:02 | Outpatient (BNVA) | payer BC, SELFPAY | PROVIDERS: PCP Physician Assistant; Visit Provider Orthopaedic Surgery ==

== ENCOUNTER 2023-08-23 08:36 | Outpatient (REF) | payer BC, SELFPAY ==
--- NOTE | ~2023-08-23 | MM_ITS ---
EXAMINATION: MM SCREENING DIGITAL BREAST TOMOSYNTHESIS, BILATERAL CLINICAL INFORMATION: Screening. Asymptomatic. The patient is status post breast reduction. COMPARISON: Mammography: This study is compared with prior exams dating back to TECHNIQUE: Digital breast tomosynthesis is performed in both the craniocaudal and mediolateral oblique views along with computer-aided detection (CAD). Synthesized 2D images are generated from the tomosynthesis. FINDINGS: There are scattered areas of fibroglandular density (ACR BI-RADS breast composition Category b). There are no significant masses, abnormal calcifications, or other abnormalities. Post reduction changes are present in each breast. MM/MM tomosynthesis screening BI IMPRESSION: No mammographic evidence of malignancy. ASSESSMENT: BI-RADS BI-RADS 2 - Benign Findings RECOMMENDATION: Routine annual mammography screening. 1 year F/U This examination should not preclude the clinical evaluation of a suspicious palpable abnormality. This patient's information was entered into a reminder system with a target due date for their next mammogram.
== END 2023-08-23 08:37 | disposition home or self-care (01) ==
LOC: HO.MAMMO 08:36
PROVIDERS: PCP Physician Assistant; Visit Provider Physician Assistant
DX: Z12.31 Encounter for screening mammogram for malignant neoplasm of breast (principal)
CPT/HCPCS: 77063; 77067

== ENCOUNTER → 2023-08-23 09:00 | Outpatient (BNV) | payer BC, SELFPAY | PROVIDERS: PCP Physician Assistant; Visit Provider Radiology Diagnostic Radiology | DX: Z12.31 Encounter for screening mammogram for malignant neoplasm of breast (principal) | CPT/HCPCS: 77063; 77067 ==

== ENCOUNTER 2023-08-27 15:19 | Emergency (ER) | payer BC, SELFPAY ==
[2023-08-27 15:21] VITALS: BP 150/95; PULSE 87; RESP 16; TEMP 36.5; O2SAT 99; BMI 32.9
--- NOTE | 2023-08-27 15:21 | ED_ITS ---
HPI - URI/Sore Throat General Chief Complaint: Upper Respiratory Symptoms Stated Complaint: Sore throat Time Seen by Provider: 08/27/23 15:37 Source: patient Mode of arrival: ambulatory Limitations: no limitations History of Present Illness HPI Narrative: 53 yo f with pmhx of asthma, anemia, iron deficiency anemia presents with sore throat, b/l ear pain L>R, congestion/ sinus pressure, headache ( frontal, atraumatic, no dizziness, weakness) X 2 days. 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 Has taken Motrin, but reports no help. Denies difficulty swallowing/changes in voice, trouble handling secretions, chest pain, sob, wheezing, nausea, vomiting, fevers, chills, abdominal pain, dizziness. NIHSS-0 Related Data Previous Rx's ?Medication ?Instructions ?Recorded albuterol sulfate 90 mcg/actuation 1 inh inhalation QID 30 days #8.5 11/12/21 aerosol inhaler grams benzonatate 100 mg capsule 100 mg PO BID PRN cough 7 days #14 12/03/22 caps amoxicillin 875 mg-potassium 1 tab PO BID 10 days #20 tabs 08/27/23 clavulanate 125 mg tablet ciprofloxacin 0.3 %-dexamethasone 4 drp otic (ear) left Q12H 7 days 08/27/23 0.1 % ear drops,suspension #7.5 mL prednisone 20 mg tablet 20 mg PO DAILY 5 days #5 tabs 08/27/23 Allergies Allergy/AdvReac Type Severity Reaction Status Date / Time No Known Allergies Allergy Verified 08/27/23 15:25 [No Known Allergies*] Review of Systems Review of Systems: Yes all other systems are reviewed and are negative PMFSH Past Medical History Attestation statement: The following information was validated with the patient. Source: old records reviewed and nursing notes reviewed Medical History Abscess of thumb, right Anemia Annual physical exam Asthma Colon cancer screening Conjunctivitis COVID-19 Elevated fasting blood sugar Encounter for general health examination Humerus fracture Impaired glucose metabolism Left elbow fracture Obese Screening for diabetes mellitus (DM) Surgical History H/O bilateral breast reduction surgery History of section History of cholecystectomy History of lumbar surgery Family History Family History Father Diabetes High cholesterol Mother Chronic mental illness Mental health disorder Maternal Grandmother Cancer Maternal Grandfather Heart disease Paternal Grandmother No problems noted. Paternal Grandfather No problems noted. 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 Oriented X3.? No acute distress.? Head: Normocephalic, atraumatic, no step-offs or deformities. Discomfort w/ palpation to facial sinuses. Eyes: Pupils equal, round and reactive to light.? ENT: Pharynx erythema slight edema to tonsils. Uvula midline. No exudate or abscess. Speaking in full sentences controlling secretions well.?+ erythematous and bulging left-sided tympanic membrane with erythematous ear canal and pain with manipulation of left external ear. No mastoid tenderness. No pain with manipulation of right ear. Normal right tympanic membrane. No mastoid tenderness on the right Neck: Normal inspection.? Neck supple.? CVS: Normal heart rate and rhythm.? Pulses normal.? Respiratory: No respiratory distress.? Breath sounds normal.? Abdomen: Soft and nontender.? Skin: Skin warm and dry.? Normal skin color.? Normal skin turgor.? Extremities: 5/5 strength to bilateral upper and lower extremities Neuro: Oriented X 3.? No motor deficit.? No sensory deficit. CN 2-12 intact . Ambulating w/ steady gait normal coordination Course Course Course Narrative: This is a rapid medical exam. Deferred additional HPI, ROS, PE to primary provider. 53 yo female here with sore throat, ear pain x 2 days. Will obtain viral testing, strep testing. VSS Reevaluation(s) Reevaluation #1: Viral testing and strep test still pending. However this would not warp changer as patient does have otitis media and externa. Will discharge her home on antibiotics. Educated patient on diagnosis and treatment plan, answered all question, patient verbalizes understanding. At this time patient will be discharged home, advised to return with new or worsening symptoms. Educated on worrisome signs and symptoms and when to return. At this time I feel comfortable discharge home. Time: 16:18 Medical Decision Making Medical Decision Making [facility] Narrative: 53 yo f with pmhx of asthma and anemia presents with sore throat, ear pain b/l L>R, congestion, headache X 2 days. 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 PE Pharynx erythema slight edema to tonsils. Uvula midline. No exudate or abscess. Speaking in full sentences controlling secretions well.??External ears normal. No pain with manipulation of external ears bilaterally. & discomfort w/ plaption of facial sinuses . + erythematous and bulging left-sided tympanic membrane with erythematous ear canal and pain with manipulation of left external ear. No mastoid tenderness. No pain with manipulation of right ear. Normal right tympanic membrane. No mastoid tenderness on the right Hx and PE likely for viral illness vs strep vs sinusitis w/concomitant otitis media and likely otitis externa of the left ear. Unlikely ICH, stroke, poterior stroke, meningitis, encephalitis, unlike RPA, INFANT NANNY, epiglotitis. No signs of ARDS or acute threat to airway . No signs of mastoiditis Plan- viral test strep test Differential Diagnosis Differential Diagnoses: The differential diagnosis associated with the presentation includes Hx and PE likely for viral illness vs strep vs sinusitis w/concomitant otitis media and likely otitis externa of the left ear. Unlikely ICH, stroke, poterior stroke, meningitis, encephalitis, unlike RPA, INFANT NANNY, epiglotitis. No signs of ARDS or acute threat to airway . No signs of mastoiditis Admission/Observation Consideration of admission/observation: Escalation of care including admission/observation considered Unlikely Lab Data [facility] Lab Attestation statement: I reviewed the patient's lab results. External Record Review External record reviewed: Inpatient record, Office record, Outpatient record, Prior outpatient labs, Prior outpatient radiology, Primary care record and Outside ED record Prescription Management I considered prescription management with: Antibiotic Critical Care Time Critical Care Time Critical Care Time: No Discharge Plan Discharge Clinical Impression: Otitis media, Otitis externa Patient Disposition: Home, Self-Care Instructions: Viral Syndrome (ED) Additional Instructions: Take your medications as prescribed. If you were prescribed antibiotics today, it is important that you take your medication to their entirety, do not skip any doses, do not finish them early. Follow-up with your primary care provider this week. Return to the emergency department with new or worsening symptoms. Such as fevers, chills, chest pain, shortness of breath, nausea, vomiting, dizziness, headache, vision changes, lethargy In case of emergency call 911 Prescriptions: New prednisone 20 mg tablet 20 mg PO DAILY 5 Days Qty: 5 0RF ciprofloxacin-dexamethasone 0.3-0.1 % drops,suspension 4 drp otic (ear) left Q12H 7 Days Qty: 7.5 0RF amoxicillin-pot clavulanate 875-125 mg tablet 1 tab PO BID 10 Days Qty: 20 0RF No Action benzonatate 100 mg capsule 100 mg PO BID PRN (Reason: cough) 7 Days Qty: 14 0RF albuterol sulfate 90 mcg/actuation HFA aerosol inhaler 1 inh inhalation QID 30 Days Qty: 8.5 1RF Referrals: Mario Alvarado PA-C [Primary Care Provider] - 2 days Stand Alone Forms: Work/School Release Print Language: Wolof
[2023-08-27 16:36] LABS: IDNOW Serial# 58CA691E; Strep A Nucleic Acid Negative (Negative)
[2023-08-27 17:10] LABS: Influenza A PCR NEGATIVE (Negative); Influenza B PCR NEGATIVE (Negative); Resp Syncy Virus RNA Qual PCR NEGATIVE (Negative); SARS COV2 PCR INHOUSE NEGATIVE (Negative)
[2023-08-27 17:34] VITALS: BP 160/88; PULSE 78; RESP 18; O2SAT 97; O2SAT 98
[2023-08-27 17:37] VITALS: BP 160/88; PULSE 78; RESP 18; TEMP 36.5; O2SAT 98
== END 2023-08-27 17:37 | disposition home or self-care (01) ==
PROVIDERS: Nurse Practitioner Family; Emergency Provider Emergency Medicine; PCP Physician Assistant
DX: H66.92 Otitis media, unspecified, left ear (principal); H60.92 Unspecified otitis externa, left ear; R51.9 Headache, unspecified; J02.9 Acute pharyngitis, unspecified; J45.909 Unspecified asthma, uncomplicated; Z03.818 Encounter for observation for suspected exposure to other biological agents ruled out
CPT/HCPCS: 0241U; 87651; 99283; 99284

== ENCOUNTER 2023-09-04 08:35 | Emergency (ER) | payer BC, SELFPAY ==
[2023-09-04 08:37] VITALS: BP 115/79; PULSE 98; RESP 18; TEMP 36.6; O2SAT 99; BMI 39.1
--- NOTE | 2023-09-04 09:15 | ED_ITS ---
HPI - URI/Sore Throat General Chief Complaint: Upper Respiratory Symptoms Stated Complaint: Headache, body aches Time Seen by Provider: 09/04/23 09:03 Source: patient Mode of arrival: ambulatory Limitations: no limitations History of Present Illness HPI Narrative: Patient is a 53-year-old female who presents to the emergency department for evaluation of 10 days of upper respiratory symptoms. She was seen here in this emergency department on 08/27/2023 and states she was given an oral antibiotic and antibiotic ear drops in addition to prednisone. At that time she was experiencing sore throat, ear pain, congestion with sinus pressure and headache. She reports that her ear pain has improved but she continues to have nasal congestion sinus pressure and an intermittent headache, in addition she has a dry nonproductive cough. She denies any fevers, chills, dizziness, vision changes, pain neck stiffness, shortness of breath, difficulty breathing, sore throat, nausea, vomiting, abdominal pain, numbness or tingling of the extremities, genitourinary symptoms. she denies any known sick contacts. Related Data Previous Rx's ?Medication ?Instructions ?Recorded albuterol sulfate 90 mcg/actuation 1 inh inhalation QID 30 days #8.5 11/12/21 aerosol inhaler grams benzonatate 100 mg capsule 100 mg PO BID PRN cough 7 days #14 12/03/22 caps amoxicillin 875 mg-potassium 1 tab PO BID 10 days #20 tabs 08/27/23 clavulanate 125 mg tablet ciprofloxacin 0.3 %-dexamethasone 4 drp otic (ear) left Q12H 7 days 08/27/23 0.1 % ear drops,suspension #7.5 mL prednisone 20 mg tablet 20 mg PO DAILY 5 days #5 tabs 08/27/23 Allergies Allergy/AdvReac Type Severity Reaction Status Date / Time No Known Allergies Allergy Verified 09/04/23 08:39 [No Known Allergies*] Review of Systems Review of Systems: Yes all other systems are reviewed and are negative PMFSH Past Medical History Attestation statement: The following information was validated with the patient. Source: old records reviewed Medical History Left elbow fracture Humerus fracture Abscess of thumb, right Elevated fasting blood sugar Screening for diabetes mellitus (DM) Colon cancer screening Annual physical exam Obese Impaired glucose metabolism Conjunctivitis Asthma Anemia COVID-19 Encounter for general health examination Surgical History History of cholecystectomy History of lumbar surgery H/O bilateral breast reduction surgery History of section Family History Family History Father Diabetes High cholesterol Mother Chronic mental illness Mental health disorder Maternal Grandmother Cancer Maternal Grandfather Heart disease Paternal Grandmother No problems noted. Paternal Grandfather No problems noted. 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 No acute distress.?Normal affect. Eyes: Pupils equal, round and reactive to light.? ENT: TM normal bilaterally. no auricular or tragus tenderness upon palpation. No mastoid tenderness. Pharynx normal.? Bilateral maxillary sinus tenderness palpation? Neck: Normal inspection.? Neck supple.??No cervical adenopathy. Full range of motion CVS: Heart sounds normal. Normal heart rate and rhythm.? Pulses normal.?? Respiratory: No respiratory distress.? Lung sounds clear to auscultation bilaterally?? Abdomen: Soft and non-tender. Normoactive bowel sounds. Skin: Skin warm and dry.? Normal skin color.? ? Extremities: No lower extremity edema.? Neuro: Moves all extremities spontaneously. Sensation intact bilaterally. No motor deficits. Negative Brudzinski/Kernig sign. Ambulates with normal steady gait. Medical Decision Making Medical Decision Making [facility] Narrative: Patient is a 53-year-old female past medical history of asthma, iron deficiency anemia presenting to emergency department for evaluation of persistent URI symptoms. She was seen in the emergency department 8 days ago and was treated with course of Augmentin in addition to Ciprodex drops and prednisone For otitis media and otitis externa. Her ear symptoms have improved but she continues to have congestion sinus pressure and an intermittent headache. She has no meningismus. No red flag symptoms with her headache, it is atraumatic in nature. She has no focal neurological deficits. Her ear infection has resolved. She does have bilateral maxillary sinus tenderness on exam. I did discuss with her the possibility of a viral sinusitis versus antibiotics. She does feel strongly about trialing alternative course of antibiotics, there is some possibility that she may have a resistant bacterial sinusitis, however no risk factors for poor outcome, considered alternative treatment with doxycycline, which she feels strongly about trying. COVID-19 /influenza/ RSV testing negative. At this time history and physical exam not consistent with pneumonia. Well-appearing, nontoxic, afebrile, no tachycardia or tachypnea/hypoxia. Speaking clear full sentences, ambulatory with steady gait. Discussed conservative treatment including rest, hydration, Tylenol/ibuprofen as needed for fever and body aches, saline nasal spray, humidifier, [id number] cold medication. Advised to follow-up with primary care provider as needed, discussed reasons to return back to the emergency department. All questions were answered. Patient discharged home in stable condition. Differential Diagnosis Differential Diagnoses: The differential diagnosis associated with the presentation includes ( See narrative above) Admission/Observation Consideration of admission/observation: Escalation of care including admission/observation considered ( see narrative above) Lab Data [facility] Lab Attestation statement: I reviewed the patient's lab results. ( see narrative above) Labs: Lab Results 09/04/23 Range/Units 08:43 Influenza Type A (PCR) NEGATIVE (Negative) Influenza Type B (PCR) NEGATIVE (Negative) RSV RNA Qual (PCR) NEGATIVE (Negative) SARS-CoV-2 RNA (RT-PCR) NEGATIVE (Negative) Prescription Management I considered prescription management with: Pain Medication ( acetaminophen/ibuprofen) Discharge Plan Discharge Clinical Impression: Sinusitis Qualifiers: Sinusitis location: maxillary Chronicity: acute Patient Disposition: Home, Self-Care Instructions: Sinusitis (ED) Additional Instructions: As discussed, Sinus infections may be viral in nature rather than bacterial. We discussed the option of considering an alternative course of antibiotic treatment different from the 1 that you already received in the event that this is a resistant bacterial sinus infection. Stop taking the Augmentin at this time, and Complete course of doxycycline as prescribed. On doxycycline, do not take pills immediately before going to bed and swallow pills with plenty of water. Avoid direct sunlight, iron, antacids, and Pepto Bismol. Call your provider if you develop new ringing in your ears, new problems hearing, dizziness, difficulty swallowing, rash, abdominal discomfort, nausea, or diarrhea.? Be sure to rest, stay well hydrated drinking plenty of fluids, eat small frequent meals. Tylenol/ibuprofen can be used as needed for fever/pain. [id number] cold medications may be helpful as well for symptoms. Saline nasal spray, humidifier may be helpful for nasal congestion. You may return to the emergency department with any new or worsening symptoms or concerns. Follow-up with your primary care provider as needed. Prescriptions: No Action benzonatate 100 mg capsule 100 mg PO BID PRN (Reason: cough) 7 Days Qty: 14 0RF prednisone 20 mg tablet 20 mg PO DAILY 5 Days Qty: 5 0RF ciprofloxacin-dexamethasone 0.3-0.1 % drops,suspension 4 drp otic (ear) left Q12H 7 Days Qty: 7.5 0RF amoxicillin-pot clavulanate 875-125 mg tablet 1 tab PO BID 10 Days Qty: 20 0RF albuterol sulfate 90 mcg/actuation HFA aerosol inhaler 1 inh inhalation QID 30 Days Qty: 8.5 1RF Referrals: Mario Alvarado PA-C [Primary Care Provider] - Stand Alone Forms: Work/School Release Interventions: ED Discharge Assessment Last Done: 09/04/23 09:53 Discharge Date/Time: 09/04/23 09:54 Print Language: Polish
[2023-09-04 09:34] LABS: Influenza A PCR NEGATIVE (Negative); Influenza B PCR NEGATIVE (Negative); Resp Syncy Virus RNA Qual PCR NEGATIVE (Negative); SARS COV2 PCR INHOUSE NEGATIVE (Negative)
[2023-09-04 09:53] VITALS: BP 115/79; PULSE 98; RESP 16; TEMP 36.6; O2SAT 99
== END 2023-09-04 09:54 | disposition home or self-care (01) ==
PROVIDERS: Emergency Provider Student in an Organized Health Care Education/Training Program; PCP Physician Assistant
DX: J01.00 Acute maxillary sinusitis, unspecified (principal); J45.909 Unspecified asthma, uncomplicated; Z11.52 Encounter for screening for COVID-19
CPT/HCPCS: 0241U; 99283

== ENCOUNTER 2024-07-13 21:56 | Emergency (ER) | payer BC, SELFPAY ==
--- NOTE | 2024-07-13 | ECG_ITS ---
Test Reason : ABD PAIN Blood Pressure : */* mmHG Vent. Rate : 84 BPM Atrial Rate : 84 BPM P-R Int : 130 ms QRS Dur : 72 ms QT Int : 356 ms P-R-T Axes : 37 24 31 degrees QTcB Int : 420 ms Normal sinus rhythm Low voltage QRS Borderline ECG When compared with ECG of 11-May-2020 19:26, No significant change was found Referred By: Generic ED Physician Electronically Signed By: EDER DODD MD
--- NOTE | ~2024-07-13 | XR_ITS ---
CLINICAL HISTORY: chest pain 1 view chest x-ray Comparison: CR/SR - XR CHEST 1V - 12/03/22 19:29 EDT Findings: No consolidation or effusion. Normal size heart. No acute fracture. IMPRESSION: 1. No acute findings. This document has been electronically signed by: Daniel Oakley MD, PHD on 07/14/2024 02:18:14
[2024-07-13 22:01] VITALS: BP 146/94; PULSE 84; RESP 18; TEMP 36.1; O2SAT 100; BMI 38.4
[2024-07-13 22:29] LABS: MANUAL DIFF FLAG NO
[2024-07-13 22:30] LABS: Basophils Percent Auto 0.4 % (0-2); Eosinophils Absolute Auto 0.5 X10*3/uL (0.0-0.4); Eosinophils Percent Auto 4.8 % (0-4); Hematocrit 38.5 % (37.0-47.0); Hemoglobin 12.2 g/dl (12.0-16.0); Imm Gran Abs Auto 0.03 X10*3/uL (0.00-0.03); Imm Gran Pct Auto 0.3 % (0.0-0.4); Lymphocytes Absolute Auto 3.2 X10*3/uL (1.2-4.9); Lymphocytes Percent Auto 30.1 % (20-40); Mean Corpuscular HGB Conc 31.7 g/dl (31.0-35.0); Mean Corpuscular Hemoglobin 22.6 pg (27.0-33.0); Mean Corpuscular Volume 71.3 fL (80.0-98.0); Mean Platelet Volume 10.2 fL (9.4-12.3); Monocytes Absolute Auto 0.7 X10*3/uL (0.1-1.2); Monocytes Percent Auto 6.5 % (2-11); Neutrophils Absolute Auto 6.1 x10*3/uL (2.0-8.3); Neutrophils Percent Auto 57.9 % (45-73); Platelet Count 297 X10*3/uL (160-400); Red Cell Distribution Width 15.7 % (11.0-16.0); White Blood Count 10.6 X10*3/uL (4.8-10.8)
[2024-07-13 22:54] LABS: Troponin-I High Sensitivity 9.3 ng/L (<3.5-17.0)
[2024-07-13 22:55] LABS: Alanine Aminotransferase 20 U/L (0-31); Albumin Level 4.3 g/dL (3.5-5.0); Alkaline Phosphatase 67 U/L (39-117); Anion Gap 12 (12-20); Aspartate Amino Transferase 18 U/L (5-31); Bilirubin Total 0.3 mg/dL (0.0-1.0); Blood Urea Nitrogen 18 mg/dL (9-16); Calcium 9.6 mg/dL (8.4-10.2); Carbon Dioxide 23 mmol/L (22-29); Chloride 110 mmol/L (96-108); Creatinine Clr Calc Pharmacy 85.5; Estimated Glomerular Filt Rate > 60; Glucose Random 111 mg/dL (60-115); Potassium 3.9 mmol/L (3.3-5.1); Sodium 141 mmol/L (135-145); Total Protein 8.1 g/dL (6.5-8.0)
[2024-07-13 23:07] LABS: Influenza A PCR NEGATIVE (Negative); Influenza B PCR NEGATIVE (Negative); Resp Syncy Virus RNA Qual PCR NEGATIVE (Negative); SARS COV2 PCR INHOUSE NEGATIVE (Negative)
--- OUTSIDE RECORDS SUMMARY | 2024-07-14 00:45 | XMS_ITS | Encounter Summary ---
Author Organization [employer] Address [address] [place] [address] Care Team Providers Care Alignment Specialist Name Role Phone Unavailable Primary Care Provider Unavailabl e Encounter Details Date Type Department Care Team (Latest Contact Info) Description 06/12/2019 Abstract C CONVERSIONS Dental, Provider, DDS Social History Tobacco Use Types Packs/Day Years Used Date Smoking Tobacco: Never Assessed Comments Unknown Sex and Gender Information Value Date Recorded Sex Assigned at Female 03/08/2022 10:23 AM EDT Legal Sex Female 10:23 AM EDT Gender Identity Female 03/08/2022 10:23 AM EDT Sexual Orientation Choose not to disclose 2021 10:23 AM EDT documented as of this encounter Plan of Treatment Not on file documented as of this encounter Visit Diagnoses Not on filedocumented in this encounter
--- OUTSIDE RECORDS SUMMARY | 2024-07-14 00:45 | XMS_ITS | Encounter Summary ---
Author Organization [employer] Address [address] [place] [address] Care Team Providers Care System Administration Manager Name Role Phone Unavailable Primary Care Provider Unavailabl e Encounter Details Date Type Department Care Team (Latest Contact Info) Description 06/08/2018 Abstract C CONVERSIONS Dental, Provider, DDS Social [...]
[2024-07-14 00:53] VITALS: BP 133/78; PULSE 77; RESP 16; TEMP 36.9; O2SAT 98
--- NOTE | 2024-07-14 01:00 | PC.NURSE ---
Repeat POC: 118
--- NOTE | 2024-07-14 01:19 | ED_ITS ---
HPI - General Adult General Chief complaint: General Medical Stated complaint: abd pain / shoulder blades tender Time Seen by Provider: 07/14/24 01:16 Source: patient Mode of arrival: ambulatory Limitations: no limitations History of Present Illness ED Provider: HPI narrative: Patient no significant cardiac history or risk factors comes here with pain in the right shoulder blade started about 4 hours ago bilateral rest which increases on palpation and movements of the right arm also has pain in the right shoulder denies any chest pain no shortness a breath denies any trauma never had similar pain in the past Related Data Previous Rx's ?Medication ?Instructions ?Recorded albuterol sulfate 90 mcg/actuation 1 inh inhalation QID 30 days #8.5 11/12/21 aerosol inhaler grams benzonatate 100 mg capsule 100 mg PO BID PRN cough 7 days #14 12/03/22 caps amoxicillin 875 mg-potassium 1 tab PO BID 10 days #20 tabs 08/27/23 clavulanate 125 mg tablet ciprofloxacin 0.3 %-dexamethasone 4 drp otic (ear) left Q12H 7 days 08/27/23 0.1 % ear drops,suspension #7.5 mL prednisone 20 mg tablet 20 mg PO DAILY 5 days #5 tabs 08/27/23 cyclobenzaprine 10 mg tablet 10 mg PO Q8H #20 tabs 07/14/24 ibuprofen 600 mg tablet 600 mg PO Q6H PRN fever or pain 07/14/24 #30 tabs Allergies Allergy/AdvReac Type Severity Reaction Status Date / Time No Known Allergies Allergy Verified 07/13/24 22:02 [No Known Allergies*] Review of Systems 2 Review of Systems: Yes all other systems are reviewed and are negative PMFSH Past Medical History Medical History Left elbow fracture Humerus fracture Abscess of thumb, right Elevated fasting blood sugar Screening for diabetes mellitus (DM) Colon cancer screening Annual physical exam Obese Impaired glucose metabolism Conjunctivitis Asthma Anemia COVID-19 Encounter for general health examination Surgical History History of cholecystectomy History of lumbar surgery H/O bilateral breast reduction surgery History of section Family History Family History Father Diabetes High cholesterol Mother Chronic mental illness Mental health disorder Maternal Grandmother Cancer Maternal Grandfather Heart disease Paternal Grandmother No problems noted. Paternal Grandfather No problems noted. 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 Oriented X3. No acute distress. Eyes: PERRLA, No Nystagmus ENT: Pharynx normal. Oral Mucosa moist Neck: Normal inspection. Neck supple. CVS: Normal heart rate and rhythm. Pulses normal. Respiratory: No respiratory distress. Equal air entry bilateral, no wheezing/rales/rhonchi Abdomen: Soft and nontender. Bowel sounds are present, no mass palpable, no CVA tenderness Skin: Skin warm and dry. Normal skin color. Normal skin turgor. Extremities: No lower extremity edema. No calf tenderness tenderness in the left rhomboids Neuro: Oriented X 3. No motor deficit. No sensory deficit.No cerebellar signs , cranial nerves II-XII intact Back/Spine/Pelvis Back/spine/pelvis image: 2 1. Tenderness right rhomboids area good range of left shoulder joint no swelling Medical Decision Making Medical Decision Making MDM Narrative: Patient clinically with a muscular pain on the right side EKG and cardiac enzymes are negative D-dimer is also negative chest x-ray also negative patient took ibuprofen at home feeling much better will discharge patient home on ibuprofen and Flexeril for muscle relaxation likely muscular pain heart score of 1.7 Differential Diagnosis Differential Diagnoses: The differential diagnosis associated with the presentation includes Musculoskeletal pain/PE/pleurisy/ACS Lab Data [facility] Lab Attestation statement: I reviewed the patient's lab results. 07/13/24 22:18 07/13/24 22:18 Labs: Lab Results 07/13/24 07/14/24 Range/Units 22:18 01:46 WBC 10.6 (4.8-10.8) X10*3/uL RBC 5.40 (4.20-5.50) X10*6/uL Hgb 12.2 (12.0-16.0) g/dl Hct 38.5 (37.0-47.0) % MCV 71.3 L (80.0-98.0) fL MCH 22.6 L (27.0-33.0) pg MCHC 31.7 (31.0-35.0) g/dl RDW 15.7 (11.0-16.0) % Plt Count 297 (160-400) X10*3/uL MPV 10.2 (9.4-12.3) fL Immature Gran % (Auto) 0.3 (0.0-0.4) % Neut % (Auto) 57.9 (45-73) % Lymph % (Auto) 30.1 (20-40) % Bracken % (Auto) 6.5 (2-11) % Eos % (Auto) 4.8 H (0-4) % Baso % (Auto) 0.4 (0-2) % Lymph # (Auto) 3.2 (1.2-4.9) X10*3/uL Bracken # (Auto) 0.7 (0.1-1.2) X10*3/uL Eos # (Auto) 0.5 H (0.0-0.4) X10*3/uL Baso # (Auto) 0.0 (0.0-0.2) X10*3/uL Abs Immat Gran (auto) 0.03 (0.00-0.03) X10*3/uL Absolute Neuts (auto) 6.1 (2.0-8.3) x10*3/uL Absolute Nucleated RBC 0.000 (0.0-0.012) X10*3/uL Nucleated RBC % (auto) 0.0 (0.0-0.2) /100WBC D-Dimer High Sensitivty < 150 NG/ML Sodium 141 (135-145) mmol/L Potassium 3.9 (3.3-5.1) mmol/L Chloride 110 H (96-108) mmol/L Carbon Dioxide 23 (22-29) mmol/L Anion Gap 12 (12-20) BUN 18 H (9-16) mg/dL Creatinine 0.79 (0.5-1.4) mg/dL Estim Creat Clear Calc 85.5 Estimated GFR > 60 Random Glucose 111 (60-115) mg/dL Calcium 9.6 (8.4-10.2) mg/dL Total Bilirubin 0.3 (0.0-1.0) mg/dL AST 18 (5-31) U/L ALT 20 (0-31) U/L Alkaline Phosphatase 67 (39-117) U/L Troponin I High Sens 9.3 (<3.5-17.0) ng/L Total Protein 8.1 H (6.5-8.0) g/dL Albumin 4.3 (3.5-5.0) g/dL Influenza Type A (PCR) NEGATIVE (Negative) Influenza Type B (PCR) NEGATIVE (Negative) RSV RNA Qual (PCR) NEGATIVE (Negative) SARS-CoV-2 RNA (RT-PCR) NEGATIVE (Negative) Independent Interpretation I performed an independent interpretation of an: EKG and Plain X-Ray Interpretation: Normal sinus rhythm heart rate 84 beats per minute normal interval normal axis no acute STT wave changes no acute ischemia Radiology Impression Discussion of test interpretation with radiology: I have reviewed the radiologist's reading. Radiologist Impression: NAD Scores Heart Score History: -0- slightly suspicious ECG: -0- normal Age: -1- >45 - <65 Risk factory: -0- no risk factors known Troponin: -0- < or = normal limit Score: 1 Risk: 1.7% Discharge Plan Discharge Clinical Impression: Acute upper back pain Patient Disposition: Home, Self-Care Instructions: Thoracic Pain (ED) Additional Instructions: Your pain is in the right rhomboids likely musculoskeletal Take ibuprofen and muscle relaxant as prescribed Report to the ER if worsening of the pain/chest pain/shortness a breath Prescriptions: New cyclobenzaprine 10 mg tablet 10 mg PO Q8H Qty: 20 0RF ibuprofen 600 mg tablet 600 mg PO Q6H PRN (Reason: fever or pain) Qty: 30 0RF No Action benzonatate 100 mg capsule 100 mg PO BID PRN (Reason: cough) 7 Days Qty: 14 0RF prednisone 20 mg tablet 20 mg PO DAILY 5 Days Qty: 5 0RF ciprofloxacin-dexamethasone 0.3-0.1 % drops,suspension 4 drp otic (ear) left Q12H 7 Days Qty: 7.5 0RF amoxicillin-pot clavulanate 875-125 mg tablet 1 tab PO BID 10 Days Qty: 20 0RF albuterol sulfate 90 mcg/actuation HFA aerosol inhaler 1 inh inhalation QID 30 Days Qty: 8.5 1RF Print Language: Peruvian
[2024-07-14 01:59] LABS: D Dimer High Sensitivity < 150 NG/ML
--- NOTE | 2024-07-14 03:01 | PC.NURSE ---
Pt is a 54 y/o female who presents for evaluation of upper back and neck pain that is accompanied by some nausea, atraumatic. Pt also reports some mild abd pain. No similar episodes in the past. Denies dizziness, shortness of breath, fever, trauma, and travel. Denies problems voiding. Food and fluid intake WNL.
[2024-07-14] MEDS: Cyclobenzaprine HCl 10 MG TABLET PO (03:38)
[2024-07-14 03:45] VITALS: BP 159/98; PULSE 90; RESP 20; TEMP 37
== END 2024-07-14 03:48 | disposition home or self-care (01) ==
PROVIDERS: Emergency Provider Internal Medicine; PCP Physician Assistant
DX: M54.6 Pain in thoracic spine (principal); J45.909 Unspecified asthma, uncomplicated; Z79.899 Other long term (current) drug therapy; Z03.818 Encounter for observation for suspected exposure to other biological agents ruled out
CPT/HCPCS: 0241U; 36415; 71045; 80053; 84484; 85025; 85379; 93005; 99283; 99285

== ENCOUNTER → 2024-07-13 22:12 | Outpatient (BNV) | payer BC, SELFPAY | PROVIDERS: Emergency Provider Internal Medicine; PCP Physician Assistant; Visit Provider Internal Medicine Cardiovascular Disease | DX: R10.9 Unspecified abdominal pain (principal) | CPT/HCPCS: 93010 ==

== ENCOUNTER → 2024-07-14 01:34 | Outpatient (BNV) | payer BC, SELFPAY | PROVIDERS: Emergency Provider Internal Medicine; PCP Physician Assistant; Visit Provider General Practice | DX: R07.9 Chest pain, unspecified (principal) | CPT/HCPCS: 71045 ==

== ENCOUNTER 2024-08-28 08:30 | Outpatient (REF) | payer BC, SELFPAY ==
--- OUTSIDE RECORDS SUMMARY | 2024-08-28 08:52 | XMS_ITS | Clinical Summary ---
Author Organization [employer] Address [address] [place] [address] Care Team Providers Care Cartography Supervisor Name Role Phone Unavailable Primary Care Provider Unavailabl e Social History Tobacco Use Types Packs/Day Years Used Date Smoking Tobacco: Never Assessed Comments Unknown Sex and Gender Information Value Date Recorded Sex Assigned at Female 03/08/2022 10:23 AM EDT Legal Sex Female 10:23 AM EDT Gender Identity Female 03/08/2022 10:23 AM EDT Sexual Orientation Choose not to disclose 2021 10:23 AM EDT Last Filed Vital Signs Vital Sign Reading Time Taken Comments Blood Pressure 110/70 06/12/2019 12:02 AM EST Pulse 80 06/12/2019 12:02 AM EST Temperature - - Respiratory Rate - - Oxygen Saturation - - Inhaled Oxygen Concentration - - Weight - - Height - - Body Mass Index - - Plan of Treatment Health Maintenance Due Date Last Done Comments CT Colonography 1968 Colonoscopy 1968 Colorectal Cancer Screening 1968 Depression Screening 1968 FIT DNA/Cologuard 1968 FIT 1968 FOBT 1968 Sigmoidoscopy 1968 Alcohol/Substance Use Screening 1980 Tobacco Screening 1980 DTaP/Tdap/Td Vaccines (1 - Tdap) 1987 Hepatitis B Vaccines (1 of 3 - 19+ 3-dose series) 1987 Pap Smear 1989 Cervical Cancer Screening 1998 HPV/Cotest 1998 Mammogram 2008 Pneumococcal Vaccine: 50+ Ye ars (1 of 1 - PCV) 2018 Zoster Vaccines (1 of 2) 2018 COVID-19 Vaccine ( - 2023-2 5 season) 2024 Influenza Vaccine (#1) 2024 RSV Patients and Pa tients Aged 60 years or older (1 - 1-dose 75+ series) 2043 HIB Vaccines Aged Out No longer eligi ble based on patient's age to complete this topic HPV Vaccines Aged Out No longer eligi ble based on patient's age to complete this topic Hepatitis A Vaccines Aged Out No long er eligible based on patient's age to complete this topic IPV Vaccines Aged Out No longer eligi ble based on patient's age to complete this topic Meningococcal Vaccine Aged Out No kaleigh kj eligible based on patient's age to complete this topic RSV under 20 months Aged Out No longe r eligible based on patient's age to complete this topic Rotavirus Vaccines Aged Out No longer eligible based on patient's age to complete this topic
--- OUTSIDE RECORDS SUMMARY | 2024-08-28 08:52 | XMS_ITS | Encounter Summary ---
Author Organization [employer] Address [address] [place] [address] Care Team Providers Care Shafting Worker Name Role Phone Unavailable Primary Care Provider [...]
--- OUTSIDE RECORDS SUMMARY | 2024-08-28 08:53 | XMS_ITS | Encounter Summary ---
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
== END 2024-08-28 08:31 | disposition home or self-care (01) ==
LOC: HO.MAMMO 08:30
PROVIDERS: PCP Physician Assistant; Visit Provider Physician Assistant
DX: Z12.31 Encounter for screening mammogram for malignant neoplasm of breast (principal)
CPT/HCPCS: 77063; 77067

== ENCOUNTER → 2024-08-28 09:00 | Outpatient (BNV) | payer BC, SELFPAY | PROVIDERS: PCP Physician Assistant; Visit Provider Internal Medicine | DX: Z12.31 Encounter for screening mammogram for malignant neoplasm of breast (principal) | CPT/HCPCS: 77063; 77067 ==

== ENCOUNTER 2024-09-03 10:17 | Outpatient (AMB) | payer BC, SELFPAY ==
--- NOTE | 2024-09-03 10:56 | A.OFFPC_ITS ---
Vital Signs 09/03/24 10:57 Height 5 ft 2 in Weight 214 lb 8 oz BMI 39.2 BP 130/62 Blood Pressure Location Lt brachial Position Sitting Pulse 72 Pulse Source Pulse Oximeter Temp 97.1 F Temp Source Temporal Artery Scan Pulse Oximetry (%) 96 Oxygen Delivery Method Room Air Intake Visit Reasons: PE Intake Note: Patient is here today for a physical. Organ Tuner Required: No Ux Developer: Not Required per policy Accompanied by: Self / Same As Patient Allergies No Known Allergies [No Known Allergies*] Allergy (Verified 09/03/24 11:55) Medication List - Last Reconciled 09/03/24 by Mario Alvarado PA-C albuterol sulfate 90 mcg/actuation 1 inh inhalation QID 30 days ibuprofen 600 mg PO Q6H PRN Tobacco use date assessed: 09/03/24 Dental Screening Dental Screen Date: 09/03/24 Did you have a dental visit in the last 12 months?: No Did you have a dental problem in the last 6 months where you did not have access to dental care?: No Was dental information given to patient?: Patient has dentist HPI PE HPI Details Patient is a 54 -year-old female here today for routine annual physical ?Patient has a past medical history significant for impaired glucose metabolism, asthma, obesity, iron deficiency anemia. IGM:? Patient's most recent labs continue to have slightly elevated fasting blood sugar and A1c of 6. ..? Iron deficiency anemia:? Patient's most recent CBC with slightly low hemoglobin though normal RBCs.? Iron levels are normal. .. Asthma:? Has been stable, only uses albuterol inhaler on a p.r.n. basis.? Needs refill on inhaler. .. Class 2 obesity:? Has unfortunately gained weight since last office visit. H he her weight since last office visit. does understand her BMI is over 30.? She does report having a poor diet and lack of exercise. Colon cancer screening: is willing to do cologaurd. Vaccines: Up-to-date with tetanus, UTD with COVID vaccine Community Relations Specialist: Needs PAP PFSH Medical History (Updated 09/03/24 @ 12:10 by Mario Alvarado PA-C) Impaired glucose metabolism Annual physical exam Screening for diabetes mellitus (DM) Colon cancer screening Left elbow fracture Humerus fracture Abscess of thumb, right Elevated fasting blood sugar Obese Conjunctivitis Asthma Anemia COVID-19 Encounter for general health examination Surgical History History of cholecystectomy History of lumbar surgery H/O bilateral breast reduction surgery History of section Family History Father Diabetes High cholesterol Mother Chronic mental illness Mental health disorder Maternal Grandmother Cancer Maternal Grandfather Heart disease Paternal Grandmother No problems noted. Paternal Grandfather No problems noted. 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 1. Little interest or pleasure in doing things: not at all 2. Feeling down, depressed, or hopeless: not at all 3. Trouble falling or staying asleep, or sleeping too much: not at all 4. Feeling tired or having little energy: not at all 5. Poor appetite or overeating: not at all 6. Feeling bad about yourself - or that you are a failure or have let yourself or your family down: not at all 7. Trouble concentrating on things, such as reading the newspaper or watching television: not at all 8. Moving or speaking so slowly that other people could have noticed. Or the opposite - being so fidgety or restless that you have been moving around a lot more than usual: not at all 9. Thoughts that you would be better off or of hurting yourself in some way: not at all Total score: 0 Depression Screening Interpretation: Negative Depression Screening Done: Yes 42242 - PHQ-9 Billing: Yes Source: Developed by Drs. Eloy Cloud, Tawanna Ramon, Floyd Sprague and colleagues, with an educational shane from [employer]. Thrive Questionnaire Date Thrive assessed: 09/03/24 I am a: Patient What is your living situation today?: I have a steady place to live Within the past 12 months, did the food you bought not last and you didn't have the money to get more?: Never true Within the past 12 months, did you worry whether your food would run out before you got money to buy more?: Never true Do you have trouble paying for medicines?: No Do you have trouble getting transportation to medical appointments?: No Do you have trouble paying your heating and electricity bill?: No Do you have trouble taking care of your child, family member or friend?: No Do you have trouble with day-to-day activities such as bathing, preparing meals, shopping, managing finances, etc.?: No Are you currently unemployed and looking for a job?: No Are you interested in more education?: No Please select the resources that you would like help with: None Currently or been in a relationship where the following occur: No concerns reported THRIVE Score: 0 AUDIT C Alcohol Use Questionnaire (AUDIT-C) 1. How often do you have a drink containing alcohol?: Never Total Score: 0 AYANNA-7 AMB Questionnaire AYANNA-7 Date AYANNA - 7 assessed: 09/03/24 Feeling nervous, anxious, or on edge: 0 = Not at all Not being able to stop or control worryin = Not at all Worrying too much about different things: 0 = Not at all Trouble relaxin = Not at all Being so restless that it is hard to sit still: 0 = Not at all Becoming easily annoyed or irritable: 0 = Not at all Feeling afraid as if something awful might happen: 0 = Not at all Total AYANNA-7 score (0-4 normal; 5-9 mild; 10-14 moderate; 15-21 severe): 0 Source: Developed by Drs. Eloy Cloud, Tawanna Ramon, Floyd Sprague and colleagues, with an educational shane from [employer]. AYANNA-7 Assessment Billing AYANNA-7 Assessment Tool: AYANNA-7 Assessment 64677 Review of Systems Const Denies body aches, Denies chills, Denies excessive sweating, Denies fatigue, Denies fever(s) and Denies headache(s) Eyes Denies blurry vision ENT Denies dysphagia, Denies vertigo, Denies dizziness, Denies headache(s), Denies hearing loss and Denies tinnitus Card Denies chest pain, Denies chest pain with activity, Denies syncope, Denies irregular heart rhythm and Denies dyspnea Resp Denies chest congestion, Denies cough, Denies hemoptysis, Denies dyspnea and Denies wheezing GI Denies abdominal pain, Denies melena, Denies hematochezia, Denies coffee ground emesis, Denies dysphagia, Denies diarrhea, Denies nausea and Denies vomiting Denies urinary frequency, Denies dysuria, Denies urinary hesitancy and Denies urinary urgency Musc Denies arthralgias, Denies limited range of motion, Denies muscle cramps and Denies muscle weakness Skin/Breast Denies rash and Denies skin ulcer Neuro Denies Abnormal speech present, Denies confusion, Denies vertigo, Denies dizziness, Denies syncope, Denies headache(s), Denies memory loss and Denies seizure-like activity Psych Denies anxiety, Denies confusion, Denies depression, Denies memory loss, Denies panic attacks and Denies paranoia Endo Denies excessive sweating, Denies fatigue, Denies flushing, Denies polydipsia and Denies polyuria Aller/Immun Denies wheezing Physical exam (Primary Care) Vital Signs: Last Vital Signs Temp 97.1 F 09/03/24 10:57 Pulse 72 09/03/24 10:57 BP 130/62 09/03/24 10:57 Pulse Ox 96 09/03/24 10:57 Oxygen Delivery Method Room Air 09/03/24 10:57 BMI result Body Mass Index 39.2 BMI Assessment/Plan discussion: High BMI High, discussed plan: lifestyle, weight reduction, dietary and physical activity Tobacco/Smoking Status: Tobacco use Status Tobacco use date assessed 09/03/24 09/03/24 10:59 Patient Tobacco Use Status Never used Tobacco 09/03/24 10:59 e-Cigarette/Vaping Use Never Used 09/03/24 10:59 PHQ-9: PHQ-9 Score PHQ-9: Total score 0 09/03/24 10:59 Depression Screening Interpretation: Negative Thrive Assessment: Date of Thrive Assessment Date Thrive assessed 09/03/24 09/03/24 10:59 Currently or been in a relationship where the following occur: No concerns reported Const General: cooperative, comfortable, no acute distress, alert and awake; No confusion Orientation/consciousness: oriented to person, oriented to place, patient oriented x3 and No confusion HENMT Head: Yes normocephalic Ears: external ears normal and TM's normal bilaterally Face and sinus: No sinus tenderness Mouth: Normal oral and palatal mucosa present and tongue normal Teeth and gingiva: dentition normal and gingiva normal Throat: Yes posterior oropharynx normal, Yes tonsils normal and Yes uvula midline Eyes Conjunctivae: conjunctivae normal Sclerae: sclerae normal Pupils: Equal, round and reactive pupils present EOM: EOMs intact bilaterally Direct Ophthalmoscopy: No no photophobia Neck Neck: Yes no lymphadenopathy, No tender and Yes no JVD Thyroid: Thyroid normal Carotids: no bruits Chest Chest palpation & inspection: no tenderness Resp Effort & Inspection: normal respiratory effort, no audible wheezes, not labored and no stridor Auscultation: no crackles, no rales, no rhonchi and no wheezes Cardio Jugular venous distension: no JVD Rate: regular rate, not bradycardic and not tachycardic Rhythm: regular rhythm Bruits: no carotid bruits Peripheral pulses: Peripheral pulses 2+ throughout GI Inspection: Yes normal to inspection, No abdominal wall ecchymosis and No visible herniation Palpation (GI): Soft to palpation, nontender, no guarding, not rigid and No hepatosplenomegaly present Auscultation: normoactive bowel sounds General: Yes no CVA tenderness Back/Spine/Pelvis Back: no CVA tenderness and No back tenderness Cervical Spine: cervical ROM normal Thoracic/Lumbar Spine: thoracic and lumbar spine normal to inspection, straight leg raise negative bilaterally, No thoraco-lumbar ROM limited and No lumbar spinal tenderness Skin Lesions: no lesions Rashes: no rashes Wounds: no wounds Neuro General: oriented to person, oriented to place, patient oriented x3, CN's II-XI intact bilaterally and No confusion Cranial nerves: Yes Equal, round and reactive pupils present and Yes Normal accommodation reflex present Cognition (Neuro): normal cognition Speech: No Abnormal speech present Gait exam (Neuro): Normal gait present Motor exam (neuro): 5/5 motor strength present throughout Extrem Right upper extremity: full ROM; no cyanosis Left upper extremity: full ROM; no cyanosis Right lower extremity: no edema Left lower extremity: no edema Psych Appearance: grossly normal Mental Status: mental status grossly normal Affect: normal affect Attitude: cooperative Thought process: Normal thought process present Coding Level of Care Code Est Pt Prev Care 40-64y(36707) Diagnoses Annual physical exam Z00.00 Cervical cancer screening Z12.4 Colon cancer screening Z12.11 Screening for diabetes mellitus (DM) Z13.1 Mild intermittent asthma without complication J45.20 Asthma severity: mild Asthma persistence: intermittent Asthma complication type: uncomplicated Impaired glucose metabolism R73.09 Class 2 obesity E66.812 Additional Codes PHQ-9 - 04834 - PHQ-9 Billing: Yes ([id number]) AYANNA-7 Assessment Billing - AYANNA-7 Assessment Tool: AYANNA-7 Assessment 97324 ([id number]) Assessment & Plan Assessment & Plan (1) Annual physical exam: Code(s): Z00.00 - Encounter for general adult medical examination without abnormal findings Category: Medical Plan: As per HPI (2) Cervical cancer screening: Code(s): Z12.4 - Encounter for screening for malignant neoplasm of cervix Category: Medical Plan: Patient needs up-to-date Pap screening (3) Colon cancer screening: Code(s): Z12.11 - Encounter for screening for malignant neoplasm of colon Category: Medical Plan: Patient willing to do Cologuard (4) Screening for diabetes mellitus (DM): Code(s): Z13.1 - Encounter for screening for diabetes mellitus Category: Medical Plan: As per HPI (5) Asthma: Code(s): J45.909 - Unspecified asthma, uncomplicated Category: Medical Qualifiers: Asthma severity: mild Asthma persistence: intermittent Asthma complication type: uncomplicated Qualified Code(s): J45.20 - Mild intermittent asthma, uncomplicated Plan: Patient reports her asthma has been fairly well controlled with only p.r.n. use of her albuterol inhaler. (6) Impaired glucose metabolism: Code(s): R73.09 - Other abnormal glucose Category: Medical Plan: Patient has a history of impaired glucose metabolism, unfortunately has gained weight since last office visit. Will check her A1c to evaluate for diabetes. (7) Class 2 obesity: Code(s): E66.812 - Obesity, class 2 Category: Medical Plan: Patient does understand her BMI is over 35 and will work on being more physica lly active and adapting to better eating habits to reduce her weight Orders: Orders Complete Blood Count no Diff Today D50.9 - Iron deficiency anemia, unspecified IRON PROFILE Today D50.9 - Iron deficiency anemia, unspecified Hemoglobin A1c Today R73.09 - Other abnormal glucose Referrals MANNEQUIN MOLDER Referral Z12.4 - Encounter for screening for malignant neoplasm of cervix Cologuard Test Z12.11 - Encounter for screening for malignant neoplasm of colon
[2024-09-03 10:57] VITALS: BP 130/62; PULSE 72; TEMP 36.2; O2SAT 96; BMI 39.2
--- OUTSIDE RECORDS SUMMARY | 2024-09-03 11:56 | XMS_ITS | Clinical Summary ---
Author Organization [employer] Address [address] [place] [address] Care Team Providers Care Metalworker Name Role Phone Unavailable Primary Care Provider [...]
--- OUTSIDE RECORDS SUMMARY | 2024-09-03 11:56 | XMS_ITS | Encounter Summary ---
Author Organization [employer] Address [address] [place] [address] Care Team Providers Care Hotel Custodian Name Role Phone Unavailable Primary Care Provider [...]
--- OUTSIDE RECORDS SUMMARY | 2024-09-03 11:56 | XMS_ITS | Encounter Summary ---
Author Organization [employer] Address [address] [place] [address] Care Team Providers Care Electroencephalogram Technologist Name Role Phone Unavailable Primary Care Provider [...]
== END 2024-09-03 15:26 | disposition home or self-care (01) ==
LOC: HO.HMCH 10:18
PROVIDERS: PCP Physician Assistant; Visit Provider Physician Assistant
DX: Z00.00 Encounter for general adult medical examination without abnormal findings (principal); J45.20 Mild intermittent asthma, uncomplicated; E66.812 Obesity, class 2; Z68.39 Body mass index [BMI] 39.0-39.9, adult; R73.09 Other abnormal glucose; Z12.11 Encounter for screening for malignant neoplasm of colon; Z13.1 Encounter for screening for diabetes mellitus

== ENCOUNTER → 2024-09-03 10:17 | Outpatient (BNVA) | payer BC, SELFPAY | PROVIDERS: PCP Physician Assistant; Visit Provider Physician Assistant | DX: Z00.00 Encounter for general adult medical examination without abnormal findings (principal); J45.20 Mild intermittent asthma, uncomplicated; R73.09 Other abnormal glucose; E66.812 Obesity, class 2; Z68.39 Body mass index [BMI] 39.0-39.9, adult | CPT/HCPCS: 96127 ==

== ENCOUNTER 2024-09-11 06:10 | Outpatient (REF) | payer BC, SELFPAY ==
--- OUTSIDE RECORDS SUMMARY | 2024-09-11 06:13 | XMS_ITS | Encounter Summary ---
Author Organization [employer] Address [address] [place] [address] Care Team Providers Care Digital Forensic Examiner Name Role Phone Unavailable Primary Care Provider Unavailabl e Encounter Details Date Type Department Care Team (Latest Contact Info) Description 06/12/2019 Abstract [facility] CONVERSIONS Dental, Provider, DDS Social History Tobacco [...]
--- OUTSIDE RECORDS SUMMARY | 2024-09-11 06:13 | XMS_ITS | Clinical Summary ---
Author Organization [employer] Address [address] [facility] [address] [place] [address] Care Team Providers Care Raspberry Checker Name Role Phone Unavailable Primary Care Provider [...] Vaccines (1 of 2) 2018 COVID-19 Vaccine (2023-2 5 season) 2024 Influenza Vaccine (#1) 2024 [...]
--- OUTSIDE RECORDS SUMMARY | 2024-09-11 06:13 | XMS_ITS | Encounter Summary ---
Author Organization [employer] Address [address] [place] [address] Care Team Providers Care Platen Press Operator Apprentice Name Role Phone Unavailable Primary Care Provider Unavailabl e Encounter Details Date Type Department Care Team (Latest Contact Info) Description 06/08/2018 Abstract [facility] CONVERSIONS Dental, Provider, DDS Social History Tobacco [...]
[2024-09-11 07:24] LABS: Hemoglobin 11.3 g/dl (12.0-16.0); Mean Corpuscular HGB Conc 30.5 g/dl (31.0-35.0); Mean Corpuscular Hemoglobin 22.2 pg (27.0-33.0); Mean Corpuscular Volume 72.8 fL (80.0-98.0); Mean Platelet Volume 11.2 fL (9.4-12.3); Platelet Count 265 X10*3/uL (160-400); Red Blood Count 5.08 X10*6/uL (4.20-5.50); Red Cell Distribution Width 15.7 % (11.0-16.0); White Blood Count 7.5 X10*3/uL (4.8-10.8)
[2024-09-11 07:54] LABS: Iron 67 mcg/dL (30-160); Percent Iron Saturation 26 % (15-50); Total Iron Binding Capacity 259 mcg/dL (228-428); Unsaturated Iron Binding 192 ug/dL
[2024-09-11 08:02] LABS: Estimated Average Glucose 146 mg/dL; Hemoglobin A1C 149.9576 umol/L; Hemoglobin A1c % 6.7 % (<6.0); Total Hemoglobin (HGBA1C) 3013.5243 umol/L
== END 2024-09-11 06:11 | disposition home or self-care (01) ==
LOC: HO.LAB 06:10
PROVIDERS: PCP Physician Assistant; Visit Provider Physician Assistant
DX: D50.9 Iron deficiency anemia, unspecified (principal); R73.09 Other abnormal glucose
CPT/HCPCS: 36415; 83036; 83540; 85027

== ENCOUNTER 2025-03-25 18:10 | Emergency (ER) | payer BC, SELFPAY ==
--- NOTE | ~2025-03-25 | CT_ITS ---
CLINICAL HISTORY: BLQ Tenderness; Hematuria CT abdomen and pelvis with contrast Comparison: None provided Findings: Minor atelectasis in the middle lobe. Small hiatal hernia. Cholecystectomy. Abdominal solid organs unremarkable. No urolithiasis. No bowel obstruction, pneumoperitoneum, or pneumatosis. Mesenteric vessels patent. Uterus and ovaries unremarkable. Normal appendix. No ascites or hernia. The bones are intact. IMPRESSION: No acute findings. This document has been electronically signed by: Rema Bradshaw MD on 03/26/2025 00:03:47
[2025-03-25 18:45] VITALS: BP 139/79; PULSE 86; RESP 16; O2SAT 98; BMI 36.6
--- NOTE | 2025-03-25 18:50 | ED.GENADULT ---
HPI - General Adult General Chief complaint: Urogenital-Female Stated complaint: Urinary Symptoms Time Seen by Provider: 03/25/25 22:06 Source: patient Mode of arrival: ambulatory Limitations: no limitations History of Present Illness ED Provider: Antonio ANN HPI narrative: The patient is a 55-year-old female with a history of obesity, pre-diabetes, anemia, and asthma, presenting to the ED for evaluation of dysuria with the associated bilateral lower quadrant abdominal pain, right flank pain, and some hematuria. The patient denies associated fever/chills, nausea, vomiting, recent sick contacts, or recent trauma. The patient reports symptoms began yesterday, reports a history of previous UTIs which have presented similarly. The patient reports remote history of and cholecystectomy, denies other surgical abdominal history. Related Data Previous Rx's ?Medication ?Instructions ?Recorded albuterol sulfate 90 mcg/actuation 1 inh inhalation QID 30 days #8.5 11/12/21 aerosol inhaler grams ibuprofen 600 mg tablet 600 mg PO Q6H PRN fever or pain 07/14/24 #30 tabs metformin 500 mg tablet,extended 500 mg PO DAILY 90 days #90 tabs 09/18/24 release 24 hr cephalexin 500 mg capsule 500 mg PO QID #28 caps 03/26/25 phenazopyridine 100 mg tablet 100 mg PO TID 6 doses #6 tabs 03/26/25 (Pyridium) Allergies Allergy/AdvReac Type Severity Reaction Status Date / Time No Known Allergies (No Known Allergy Verified 03/25/25 18:48 Allergies*) Review of Systems Review of Systems: Yes all other systems are reviewed and are negative [facility] Past Medical History Medical History (Updated 03/26/25 @ 00:15 by Antonio Summers PA-C) Impaired glucose metabolism Annual physical exam Screening for diabetes mellitus (DM) Colon cancer screening Left elbow fracture Humerus fracture Abscess of thumb, right Elevated fasting blood sugar Obese Conjunctivitis Asthma Anemia COVID-19 Encounter for general health examination Surgical History History of cholecystectomy History of lumbar surgery H/O bilateral breast reduction surgery History of section Family History Family History Father Diabetes High cholesterol Mother Chronic mental illness Mental health disorder Maternal Grandmother Cancer Maternal Grandfather Heart disease Paternal Grandmother No problems noted. Paternal Grandfather No problems noted. 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[employer]) Current occupational exposures/hazards: No Cognitive needs: No Hearing needs: No Vision needs: No Physical Exam ED Vital Signs: Vital Signs - 24 hr 03/25/25 18:45 03/25/25 21:16 03/26/25 00:46 Temperature 97.8 F 98.4 F Pulse Rate 86 81 77 Respiratory Rate 16 16 Blood Pressure 139/79 139/84 154/96 H Pulse Oximetry 98 98 98 Oxygen Delivery Method Room Air Room Air Room Air 03/26/25 00:52 Temperature 98.4 F Pulse Rate 77 Respiratory Rate 16 Blood Pressure 154/96 H Pulse Oximetry 98 Oxygen Delivery Method Room Air BMI result Body Mass Index 36.6 CONSTITUTIONAL: The patient appears non-toxic, well nourished and in no acute distress. Vital signs as documented. HEAD: Atraumatic, normocephalic. EYES: EOMs grossly intact, pupils equal, conjunctiva clear, no exudate. ENT: Nares patent, no discharge. Airway patent, no audible stridor, visible mucosa is pink and moist without noted lesions. NECK: Trachea is midline, no obvious masses or gross abnormalities. CHEST: Symmetric movement, normal appearance. LUNGS: LS present and CTAB, no w/r/r. Non-labored work of breathing. CARDIAC: Regular Rhythm, S1/S2 appreciated, no murmurs, rubs or gallops. ABDOMEN: Abdomen soft x4 quadrants, marked tenderness without rebound noted to the bilateral lower quadrants, no palpable masses or organomegaly. Negative CVAT bilaterally. : Deferred. EXTREMITIES: Normal tone, moves all extremities spontaneously without reported pain. No obvious acute injury or deformity noted. NEURO: Alert and oriented x3, CN II-XII appear grossly intact. Cerebellar Functioning grossly intact. No obvious sensory or motor deficits. Speech clear and appropriate. PSYCH: normal affect, appropriate eye contact, fluid speech, with appropriate response to questioning. No reported suicidality or homicidality. SKIN: Warm, dry, color appropriate, normal turgor. No rashes noted. Course Course Course Narrative: RME: 55-year-old female presents to ED for dysuria and increased urinary frequency for the past couple of days. Patient denies any recent trauma, fever chills or nausea. Labs ordered Medications Administered Discontinued Medications Generic Name Dose Route Start Last Admin Trade Name Freq PRN Reason Stop Dose Admin Cephalexin HCl 500 mg 03/26/25 00:20 03/26/25 00:46 Cephalexin 500 Mg Capsule PO 03/26/25 00:21 500 mg ONCE ONE Administration Iohexol 100 ml 03/25/25 23:08 03/25/25 23:09 Iohexol 350 Mg/Ml 100 Ml Infus..Btl IV 03/25/25 23:09 85 ml ONCE ONE Administration Phenazopyridine HCl 100 mg 03/26/25 00:20 03/26/25 00:46 Phenazopyridine Hcl 100 Mg Tablet PO 03/26/25 00:21 100 mg ONCE ONE Administration Medical Decision Making Medical Decision Making [facility] Narrative: 10:52 PM 03/25/2025 (Iram ANN): The patient is a 55-year-old female with a history of obesity, pre-diabetes, anemia, and asthma, presenting to the ED for evaluation of dysuria with the associated bilateral lower quadrant abdominal pain, right flank pain, and some hematuria. The patient denies associated fever/chills, nausea, vomiting, recent sick contacts, or recent trauma. The patient reports symptoms began yesterday, reports a history of previous UTIs which have presented similarly. The patient reports remote history of and cholecystectomy, denies other surgical abdominal history. The patient's exam demonstrates markedly exquisite bilateral lower quadrant abdominal tenderness without associated rebound, negative CVAT bilaterally. Patient's laboratory evaluation shows no leukocytosis, anemia, electrolyte abnormality, or AIDAN. Additionally the patient's urinalysis shows trace leukocyte esterase with negative nitrites, negative blood, no RBCs/WBCs, and no bacteria. Although the patient may be suffering an early UTI, given the patient's exquisite tenderness of the abdomen, without obvious UTI on urinalysis, we will obtain CT abdomen and pelvis to rule out appendicitis, diverticulitis, less likely ureterolithiasis, or other acute intra-abdominal pathology. If CT is unremarkable with the patient will be discharged with treatment for suspected UTI. 12:09 AM 03/26/2025 (Iram ANN): The patient's CT has resulted shows no acute intra-abdominal pathology. The patient's symptoms may be related to a early UTI, we will treat with cephalexin and discharged with instructions to follow up with PCP for re-evaluation. Patient appears reliable and understands reasons to return to the ED. Admission/Observation Consideration of admission/observation: Escalation of care including admission/observation considered Lab Data MDM Lab Attestation statement: I reviewed the patient's lab results. 03/25/25 18:56 03/25/25 18:56 Labs: Lab Results 03/25/25 Range/Units 18:56 WBC 9.5 (4.8-10.8) X10*3/uL RBC 5.33 (4.20-5.50) X10*6/uL Hgb 12.0 (12.0-16.0) g/dl Hct 39.1 (37.0-47.0) % MCV 73.4 L (80.0-98.0) fL MCH 22.5 L (27.0-33.0) pg MCHC 30.7 L (31.0-35.0) g/dl RDW 15.3 (11.0-16.0) % Plt Count 283 (160-400) X10*3/uL MPV 10.5 (9.4-12.3) fL Immature Gran % (Auto) 0.2 (0.0-0.4) % Neut % (Auto) 52.0 (45-73) % Lymph % (Auto) 36.2 (20-40) % [place] % (Auto) 6.3 (2-11) % Eos % (Auto) 4.9 H (0-4) % Baso % (Auto) 0.4 (0-2) % Lymph # (Auto) 3.4 (1.2-4.9) X10*3/uL [place] # (Auto) 0.6 (0.1-1.2) X10*3/uL Eos # (Auto) 0.5 H (0.0-0.4) X10*3/uL Baso # (Auto) 0.0 (0.0-0.2) X10*3/uL Abs Immat Gran (auto) 0.02 (0.00-0.03) X10*3/uL Absolute Neuts (auto) 4.9 (2.0-8.3) x10*3/uL Absolute Nucleated RBC 0.000 (0.0-0.012) X10*3/uL Nucleated RBC % (auto) 0.0 (0.0-0.2) /100WBC Sodium 143 (135-145) mmol/L Potassium 4.1 (3.3-5.1) mmol/L Chloride 108 (96-108) mmol/L Carbon Dioxide 27 (22-29) mmol/L Anion Gap 12 (12-20) BUN 15 (9-16) mg/dL Creatinine 0.91 (0.5-1.4) mg/dL Estim Creat Clear Calc 71.4 Estimated GFR > 60 Random Glucose 139 H (60-115) mg/dL Calcium 9.9 (8.4-10.2) mg/dL Total Bilirubin 0.3 (0.0-1.0) mg/dL AST 24 (5-31) U/L ALT 19 (0-31) U/L Alkaline Phosphatase 66 (39-117) U/L Total Protein 7.6 (6.5-8.0) g/dL Albumin 4.4 (3.5-5.0) g/dL Beta HCG, Quant < 2 mIU/mL Urine Color Yellow Urine Appearance Clear Urine pH 5.5 (5.0-9.0) Ur Specific [place] 1.010 (1.005-1.025) Urine Protein Negative (Neg-Trace) mg/dL Urine Glucose (UA) Negative (Negative) mg/dL Urine Ketones Negative (Negative) mg/dL Urine Blood Negative (Negative) Urine Nitrite Negative (Negative) Ur Leukocyte Esterase Trace H (Negative) Urine RBC 0-2 (0-2) /HPF Urine WBC 0-5 (0-5) /HPF Ur Squamous Epith Cells 0-2 (0-2) /HPF Urine Bacteria None Seen (None Seen) Hyaline Casts 0-2 (0-2) /LPF Radiology Impression Discussion of test interpretation with radiology: I have reviewed the radiologist's reading. Radiologist Impression: CT abdomen and pelvis with contrast Comparison: None provided Findings: Minor atelectasis in the middle lobe. Small hiatal hernia. Cholecystectomy. Abdominal solid organs unremarkable. No urolithiasis. No bowel obstruction, pneumoperitoneum, or pneumatosis. Mesenteric vessels patent. Uterus and ovaries unremarkable. Normal appendix. No ascites or hernia. The bones are intact. IMPRESSION: No acute findings. This document has been electronically signed by: Rema Bradshaw MD on 03/26/2025 00:03:47 External Record Review External record reviewed: Outpatient record and Prior outpatient labs Discharge Plan Discharge Clinical Impression: Urinary tract infection Patient Disposition: Home, Self-Care Instructions: Urinary Tract Infection in Women (ED) Additional Instructions: Thank you for choosing [facility]'s Emergency Department for your care today. Thankfully your laboratory evaluation and CT today show no evidence of any acute intra-abdominal process requiring surgical intervention, admission to the hospital or continued ED observation, and it is safe to discharge you home. Your urinalysis does not show overt signs of infection, however given your symptoms, in the presence of leukocyte esterase in your urine, we will treat you presumptively for a urinary tract infection. Please take cephalexin 4 times a day as directed until it is finished. Please take Pyridium as prescribed until it is finished. Please understand that while taking Pyridium your urine we will turn a bright she had of orange and has the potential to stain your clothes. Please stay well hydrated and get plenty of rest. Please follow up with your primary care physician for re-evaluation, additional management of your symptoms, and continued preventative care. If you do not have a primary care physician, please call the [facility] at [phone] to establish a new primary care physician. While waiting to establish your new primary care physician, you can call our [facility]in [facility] at [phone] for non-emergency needs. Please return to the emergency department if you develop a severe or sudden change in your symptoms, a fever over 100.4 that does not improve with Tylenol or Ibuprofen, recurrent vomiting, or any other new or worsening symptoms or concerns. Prescriptions: New phenazopyridine [Pyridium] 100 mg tablet 100 mg PO TID Qty: 6 0RF cephalexin 500 mg capsule 500 mg PO QID Qty: 28 0RF No Action metformin 500 mg tablet extended release 24 hr 500 mg PO DAILY 90 Days Qty: 90 1RF ibuprofen 600 mg tablet 600 mg PO Q6H PRN (Reason: fever or pain) Qty: 30 0RF albuterol sulfate 90 mcg/actuation HFA aerosol inhaler 1 inh inhalation QID 30 Days Qty: 8.5 1RF Referrals: Mario Alvarado PA-C [Primary Care Provider, Internal Medicine] Clinical Impression: Urinary tract infection Stand Alone Forms: Work/School Release Interventions: ED Discharge Assessment Last Done: 03/26/25 00:52 Discharge Date/Time: 03/26/25 00:53 Print Language: Latvian
[2025-03-25 19:00] LABS: MANUAL DIFF FLAG NO
[2025-03-25 19:04] LABS: Appearance Urine Clear; Glucose Urine UA Negative (Negative); PH 5.5 (5.0-9.0); Specific Gravity - Urine 1.010 (1.005-1.025); UMIC TRIGGER UACC YES
[2025-03-25 19:16] LABS: Hematocrit 39.1 % (37.0-47.0); Hemoglobin 12.0 g/dl (12.0-16.0); Imm Gran Abs Auto 0.02 X10*3/uL (0.00-0.03); Imm Gran Pct Auto 0.2 % (0.0-0.4); Lymphocytes Absolute Auto 3.4 X10*3/uL (1.2-4.9); Mean Corpuscular HGB Conc 30.7 g/dl (31.0-35.0); Mean Corpuscular Hemoglobin 22.5 pg (27.0-33.0); Mean Corpuscular Volume 73.4 fL (80.0-98.0); NRBC Abs Auto 0.000 X10*3/uL (0.0-0.012); NRBC Pct Auto 0.0 /100WBC (0.0-0.2); Platelet Count 283 X10*3/uL (160-400); Red Blood Count 5.33 X10*6/uL (4.20-5.50); White Blood Count 9.5 X10*3/uL (4.8-10.8)
[2025-03-25 19:21] LABS: Alanine Aminotransferase 19 U/L (0-31); Albumin Level 4.4 g/dL (3.5-5.0); Alkaline Phosphatase 66 U/L (39-117); Anion Gap 12 (12-20); Aspartate Amino Transferase 24 U/L (5-31); Blood Urea Nitrogen 15 mg/dL (9-16); Calcium 9.9 mg/dL (8.4-10.2); Carbon Dioxide 27 mmol/L (22-29); Chloride 108 mmol/L (96-108); Creatinine Clr Calc Pharmacy 71.4; Estimated Glomerular Filt Rate > 60; Potassium 4.1 mmol/L (3.3-5.1); Sodium 143 mmol/L (135-145); Total Protein 7.6 g/dL (6.5-8.0)
[2025-03-25 21:16] VITALS: BP 139/84; PULSE 81; TEMP 36.6; O2SAT 98
[2025-03-25] MEDS: iohexoL 350 MG/ML 100 ML INFUS..BTL IV (23:09)
[2025-03-26 00:46] VITALS: BP 154/96; PULSE 77; RESP 16; TEMP 36.9; O2SAT 98
[2025-03-26 00:52] VITALS: BP 154/96; PULSE 77; RESP 16; TEMP 36.9; O2SAT 98
== END 2025-03-26 00:53 | disposition home or self-care (01) ==
PROVIDERS: Physician Assistant; Emergency Provider Emergency Medicine; PCP Physician Assistant
DX: N39.0 Urinary tract infection, site not specified (principal); R35.0 Frequency of micturition; R30.0 Dysuria; R10.23 Pelvic and perineal pain bilateral; R10.8A2 Left flank tenderness; R10.8A1 Right flank tenderness; Z79.899 Other long term (current) drug therapy
CPT/HCPCS: 36415; 74177; 80053; 81001; 81003; 84702; 85025; 99284; Q9967

== ENCOUNTER → 2025-03-25 22:51 | Outpatient (BNV) | payer BC, SELFPAY | PROVIDERS: Emergency Provider Emergency Medicine; PCP Physician Assistant; Visit Provider Radiology Diagnostic Radiology | DX: R10.813 Right lower quadrant abdominal tenderness (principal); R10.814 Left lower quadrant abdominal tenderness; R31.9 Hematuria, unspecified | CPT/HCPCS: 74177 ==